=== PATIENT | male | born 1935 | race Caucasian/White ===

== ENCOUNTER → 2016-04-07 | Outpatient (CLI) | payer MEDICARE, OTHER ==
[~2016-04-07] MED LIST: ALLOPURINOL100 MG PO; AMARYL2 MG PO; CARDOXIN0.25 MG PO; CETIRIZINE HCL10 M1 PO; CIPROFLOXACIN500 MG PO; COREG3.125 MG PO; COZAAR100 MG PO; COZAAR50 MG PO; Flovent 220 M220 MCG INH; HYDRALAZINE50 MG PO; INSULIN HUMA100 U/ML; LASIX40 MG PO; LEVEMIR INSULIN SC; LEVEMIR100 U/ML SC; MELATONIN3 M1 PO; NEURONTIN300 MG PO; NOVOLOG100 U/ML SC; PRILOSEC20 M1 PO; PRILOSEC20 MG PO; PROSCAR5 MG PO; SPIRIVA -- 3018 MCG INH; TERAZOSIN5 MG PO; TOPROL XL25 MG PO; VENTOLIN H0.09 MG/AC INH; VITAMIN D31000 IU PO; WARFARIN SOD5 MG PO; ZYLOPRIM300 MG PO
--- NOTE | ~2016-04-07 | PR ---
[place], [place] PROGRESS NOTE NAME: SHEILA HERNANDEZ [facility] #: [id number] UNIT #: [id number] ROOM: DOCTOR: FRAN Davidson,SACHA BIRTHDATE: [birth year] DOS: 04/07/2016 CHIEF COMPLAINT: Followup of right lower extremity wound. HISTORY OF PRESENT ILLNESS: The location is the anterior leg with recurrent ulcerations fairly superficial that started out as blisters, that open up and were from skin tears secondary to trauma. We have had problems with recurrent blistering for the past several weeks now. He initially had refused compression stockings. He did agree to CircAid wraps; however, it did seem like it was causing recurrent blister formation due to uneven edema. He comes in today without any new complaints. He did have some superficial wounds noted last week. We discussed trying compression therapy, Unna boot specifically as he does walk and he drives, and I think for him this would be a good place to start, so he is agreeable to trying the Unna boot on today. He has no specific complaints, no drainage, no pain, no fevers or chills. He does occasionally complain of pruritus with this leg. PHYSICAL EXAMINATION: VITAL SIGNS: Temperature is 98.4, pulse is 72, respirations 18, blood pressure is 118/60. SKIN: The wounds are measuring 0.1 x 0.1 x 0.1 and the other one is also 0.1 x 0.1 x 0.1, it is almost healed. There is a very fine layer of epithelial tissue noted on it. No debridement was done. Edema is present, but appears slightly improved from prior occasions. His feet are warm. No sign of infection. 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 He is waiting to get surgery on his knee, and they will not do his surgery with any kind of open wound. I think that he would benefit from compression for now as it might help to improve his edema and hopefully keep him without a wound for a while so he can go ahead and get his surgery, so we will apply the Unna boot on today. He was told that if he had any problems with it just to take it off and he has a nursing visit in 2 days in the [facility] to follow back up for change in the Unna boot. [place], [place] PROGRESS NOTE NAME: FORESTSHEILA CARCAMO Viv UNIT #: [id number] ROOM: DOCTOR: SACHA PETERS M.D. BIRTHDATE: [birth year] SACHA PETERS MD CM:LISA [phone] SACHA PETERS M.D. 04/08/16 0151 interface
== END ==
LOC: WOUNDCARE 14:09
DX: L97.811 Non-pressure chronic ulcer of other part of right lower leg limited to breakdown of skin (principal); I87.2 Venous insufficiency (chronic) (peripheral); L29.9 Pruritus, unspecified

== ENCOUNTER → 2016-04-09 | Outpatient (CLI) | payer MEDICARE, OTHER ==
--- NOTE | ~2016-04-09 | PR ---
[place], [place] PROGRESS NOTE NAME: SHEILA HERNANDEZ [facility] #: [id number] UNIT #: [id number] ROOM: DOCTOR: FRAN Davidson,SACHA BIRTHDATE: [birth year] DOS: 04/09/2016 CHIEF COMPLAINT: Followup of right lower extremity wounds. BRIEF HISTORY OF PRESENT ILLNESS: This is a patient with venous leg ulcerations that were fairly superficial, who has had difficulty with recurrent edema and blisters that turned into wounds. We had started him a trial of Unna boot therapy this week. He was here for his nursing visit to have his boots changed and to reevaluate the wounds as this was his first trial of compression. He did okay with the boots as far as it did not cause any pain or discomfort; however, upon removal of the Unna boots, the wounds were noticeably bigger than they were and more open, so we changed him from a nursing visit to a wound care visit. PHYSICAL EXAMINATION: VITAL SIGNS: Stable. Temperature is 98.2, pulse is 74, respirations 18 and blood pressure is 122/66. EXTREMITIES: The wounds are noticeably larger, the lateral leg wound is measuring 1.1 x 0.6 x 0.1, it is clean and fairly superficial without any sign of infection. The other one is measuring bigger as well at 0.9 x 2.9 x 0.1. ASSESSMENT AND PLAN: So, these have noticeably worsened with compression, so we will not use the compression at this time. We will discontinue to Unna boot, we will have him go back to [facility] for now and have him follow up early next week. He is to change the dressing every other day. I did tell him just to go ahead and use his compression stockings if he is able to get them over his dressings, but other than that we will discontinue Unna boot for now as it does not seem to be helping. SACHA PETERS MD CM:PNTRANS [phone] SACHA PETERS M.D. 04/09/16 1252 interface
== END ==
LOC: WOUNDCARE 07:06
DX: L97.811 Non-pressure chronic ulcer of other part of right lower leg limited to breakdown of skin (principal); I87.2 Venous insufficiency (chronic) (peripheral)

== ENCOUNTER → 2016-04-16 | Outpatient (CLI) | payer MEDICARE, OTHER ==
--- NOTE | ~2016-04-16 | PR ---
[place], [place] PROGRESS NOTE NAME: SHEILA HERNANDEZ [facility]IN [facility] #: [id number] UNIT #: [id number] ROOM: DOCTOR: FRAN DavidsonSACHA BIRTHDATE: [birth year] DOS: 04/16/2016 CHIEF COMPLAINT: Followup of right leg ulcerations. HISTORY OF PRESENT ILLNESS: The location is the right lower extremity anterior as well as lateral they are recurrent chronic superficial wounds that he has had on and off for months now. He comes in with superficial wounds that healed fairly quickly. However, he has recurrent problems with blistering and edema that create new wounds. The suspected etiology of blistering is likely secondary to chronic venous insufficiency and edema. He has had some difficulty with CircAid wraps as far as trying to get the edema even when the CircAid wrap were put on hold. The patient had a trial Unna boot compression for compression. The edema improved quite a bit; however, he had increased size of his wound starting with Unna boot compression that was discontinued, so he comes in today with the original wounds that we have been dealing with that are noticeably smaller; however, has a new area on the lateral side, which he said started out again as a blister opened up, but somewhat sore and tender at this time. No other specific complaints regarding the wounds are noted. OBJECTIVE: VITAL SIGNS: Stable. Blood pressure is 120/60, pulse is 68, respirations 18, and temperature is 98.4. The small lateral wound on the right lower extremity is almost healed with 0.1 x 0.1 x 0.1 and it looks fairly healed. The distal wound is now measuring 0.5 x 1.8 x 0.1, but has an islands of epithelial and tissue in size and is essentially too smaller wound. There is no necrotic tissue visible, it is superficial and clean. The new area is located on the lateral side and is 1.5 x 2.1 x 0.1. Once again superficial and clean with no visible necrotic tissue present. ASSESSMENT AND PLAN: Recurrent ulcerations of the right lower extremity secondary to venous insufficiency and edema. He has had venous intervention done, but continues to have problems with edema and areas of blistering that creates ulcers that heel fairly quickly. He has had some issues with sensitivity to products he is appeared to be sensitive to Bactroban as well as adhesives causing trauma to the skin. We will continue with the collagen dressing. I would use silver for now for antibacterial purposes. Followup is in one week. He does have compression pumps ordered and hopefully those will drive and I would like to see if he responds to this as part of his regimen. He does have compression stockings at home, which he is going to continue to wear. ADDENDUM Addendum to the note done on 04/16/2016. The patient was also noted to have lymphedema with lymphorrhea from uncontrolled edema and recurrent blister formation. The lymphedema is chronic and severe. The patient has tried elevation, exercise and has been regularly applying compression wraps over several weeks now. He has been compliant treatments. The lymphedema is unresponsive and there has been no significant improvement over the past 4 weeks despite standard wound care and compression therapy or we [place], [place] PROGRESS NOTE NAME: SHEILA HERNANDEZ Viv UNIT #: [id number] ROOM: DOCTOR: SACHA PETERS M.D. BIRTHDATE: [birth year] are ordering compression pumps from [employer]. SACHA PETERS MD CM:LISA [phone] SACHA PETERS M.D. 05/21/16 0612 interface
== END ==
LOC: WOUNDCARE 01:33
DX: L97.811 Non-pressure chronic ulcer of other part of right lower leg limited to breakdown of skin (principal); I87.2 Venous insufficiency (chronic) (peripheral)

== ENCOUNTER → 2016-04-23 | Outpatient (CLI) | payer MEDICARE, OTHER ==
--- NOTE | ~2016-04-23 | PR ---
[place], [place] PROGRESS NOTE NAME: SHEILA HERNANDEZ [facility] #: [id number] UNIT #: [id number] ROOM: DOCTOR: FRAN DavidsonSACHA BIRTHDATE: [birth year] DOS: 04/23/2016 WOUND CARE PROGRESS NOTE CHIEF COMPLAINT: Followup of right leg ulcerations. HISTORY OF PRESENT ILLNESS: This is an elderly male with a history of recurrent venous leg ulcers that are fairly superficial, that he has had off and on for months now that started out as blistering with edema that creates superficial wounds. We have had problems with his compression wraps. He has CircAid wraps, but they do not seem to really improve things and make the edema very uneven creating new areas of blistering as well. He has also tried Unna boot compression which did not help either, it actually made the wounds appear bigger for some, which may be an issue with the material, perhaps there was an allergy to it. He is currently just using a collagen dressing with his regular compression stockings. He is awaiting lymphedema pumps. Overall, he is not complaining of any significant pain. There is still some drainage with one of the wounds, most of the other wounds have healed fairly well. In general, his edema seems better. PHYSICAL EXAMINATION: VITAL SIGNS: He is afebrile, pulse is 64, respirations 18, blood pressure is 108/54. EXTREMITIES: The right lower leg, one of the wounds is essentially almost healed. It has a small scab on it. It is 0.1 x 0.1 x 0.1. It looks good. There is no sign of infection. The other distal lower leg wound has healed. This is wound #7, wound #8 is much smaller as well at 0.7 x 1.2 x 0.1. It definitely looks good. There is no necrotic tissue visible. No debridement was done today. ASSESSMENT AND PLAN: Chronic and recurrent superficial ulcerations secondary to uncontrolled edema. They are responding well to the current dressing, which we will continue for now and have him follow up in 1 week. I hope by then, he will be healed and he is awaiting lymphedema pumps to see if this will help prevent reoccurrence. He has not heard anything from the vendor as of yet. Followup is in 1 week. [place], [place] PROGRESS NOTE NAME: SHEILA HERNANDEZ UNIT #: [id number] ROOM: DOCTOR: SACHA PETERS M.D. BIRTHDATE: [birth year] SACHA PETERS MD CM:LISA [phone] SACHA PETERS M.D. 04/24/16 0116 interface
== END | disposition home or self-care (01) ==
LOC: WOUNDCARE 03:00 → LAB 03:00 → WOUNDCARE 10:15
PROVIDERS: Family Medicine
DX: Z51.81 Encounter for therapeutic drug level monitoring (principal); Z00.00 Encounter for general adult medical examination without abnormal findings; E11.9 Type 2 diabetes mellitus without complications; M10.9 Gout, unspecified

== ENCOUNTER → 2016-04-30 | Outpatient (CLI) | payer MEDICARE, OTHER ==
--- NOTE | ~2016-04-30 | PR ---
[place], [place] PROGRESS NOTE NAME: SHEILA HERNANDEZ [facility] #: [id number] UNIT #: [id number] ROOM: DOCTOR: FRAN Davidson,SACHA BIRTHDATE: [birth year] DOS: 04/30/2016 CHIEF COMPLAINT: Followup of right leg ulcer. HISTORY OF PRESENT ILLNESS: The location is the right lower leg laterally. He has recurrent chronic superficial wounds secondary to venous insufficiency, lymphedema, and diabetes. He comes in today without any new complaints. The wound is coming along nicely. It is not draining any more. There is no discomfort. He is wearing his compression stockings. PHYSICAL EXAMINATION: VITAL SIGNS: Stable. Temperature is 98.3, pulse is 60, respirations 18, blood pressure is 110/50. EXTREMITIES: The wound is measuring 0.4 x 0.5 x 0.1; however, there is epithelialization over it and it is not draining at this point. ASSESSMENT AND PLAN: Healed wound. No new ulcerations at this time. The patient continues to have recurrent blistering secondary to venous insufficiency and recurrent edema. He does have compression stockings; however, he is due for a new pair. I would like to see if he would like to try the 2-layer compression system. I think this would probably be easier for him to get his stockings on and wear them on a daily basis. So, we have written for compression stockings to be ordered for him. In addition, he is waiting lymphedema pump to be starting soon. Hopefully, this will help as well. The patient will be discharged and was instructed to come back to the wound clinic if he has any future problems. In the meantime, we will ask him to keep the area covered for at least a week just to protect it from recurrent injury. SACHA PETERS MD CM:LISA [phone] SACHA PETERS M.D. 04/30/16 2218 interface
== END | disposition home or self-care (01) ==
LOC: WOUNDCARE 03:08 → LAB 03:08 → WOUNDCARE 09:55
DX: Z12.5 Encounter for screening for malignant neoplasm of prostate (principal); D40.0 Neoplasm of uncertain behavior of prostate; E87.2 Acidosis; L97.911 Non-pressure chronic ulcer of unspecified part of right lower leg limited to breakdown of skin; I87.2 Venous insufficiency (chronic) (peripheral); R60.9 Edema, unspecified

== ENCOUNTER → 2016-06-17 | Outpatient (CLI) | payer MEDICARE, OTHER ==
--- NOTE | ~2016-06-17 | PR ---
[place], [place] PROGRESS NOTE NAME: SHEILA HERNANDEZ [facility] #: [id number] UNIT #: [id number] ROOM: DOCTOR: FRAN DavidsonSACHA BIRTHDATE: [birth year] DOS: 06/17/2016 SUBJECTIVE: The patient comes in for followup of wound care visit. He has a history of recurrent venous ulcers, venous insufficiency, chronic leg edema and lymphedema that we have been trying to get lymphedema pumps for him. We have ordered them; however, they only brought him 1 pump instead of 2. So, he is using it on his right leg and his left leg, but mostly on the right leg at this time and he says he really seems like it really helps his swelling and he seems to like it a lot. He does tend to get blistering frequently that open up, but quickly heal and that cause ulcerations. He does have a new ulcer of the right posterior calf, which is fairly superficial. He said he just got it recently. PHYSICAL EXAMINATION: VITAL SIGNS: Examination today shows vitals that are stable. Blood pressure is 118/68, pulse is 68, respirations 16 and temperature 98.2. MUSCULOSKELETAL: The wound on the left lower leg appears healed. He does, however, have a new one on the right lower leg, which is measuring 1.1 x 0.8 x 0.1. It superficial, it is clean. There is no necrotic tissue present. The edema; however, is much improved overall. No debridement was done today. ASSESSMENT AND PLAN: Chronic venous stasis, venous insufficiency and lymphedema. The lymphedema pumps do seem to really be helping with his edema. I hope they will be able to prevent any ulcerations as well. We will continue with the pumps. I placed a call out to the company that provided the pump for him and asked if they could get 2 as he has edema of his left lower leg as well as his right. So, they said they are aware and they are ordering it and it should be at his house shortly. He was told that he should not be using his compression bandages or compression stockings while he is using his lymphedema pumps. I did explain to him that he should be using his compression stockings with his lymphedema pumps. After he is done with his treatment, he should be placing his stockings on. We will continue with Adaptic and collagen for his wound of his right lower extremity. SACHA PETERS MD CM:LISA [phone] SACHA PETERS M.D. 06/17/162020 interface
== END ==
LOC: WOUNDCARE 03:13
DX: E11.622 Type 2 diabetes mellitus with other skin ulcer (principal); I87.2 Venous insufficiency (chronic) (peripheral); L97.911 Non-pressure chronic ulcer of unspecified part of right lower leg limited to breakdown of skin; I89.0 Lymphedema, not elsewhere classified

== ENCOUNTER → 2016-06-25 | Outpatient (CLI) | payer MEDICARE, OTHER ==
--- NOTE | ~2016-06-25 | PR ---
[place], [place] PROGRESS NOTE NAME: SHEILA HERNANDEZ [facility] #: [id number] UNIT #: [id number] ROOM: DOCTOR: FRAN DavidsonSACHA BIRTHDATE: [birth year] DOS: 06/25/2016 CHIEF COMPLAINT: Recurrent ulcers of the legs. HISTORY OF PRESENT ILLNESS: This patient has a history of recurrent venous ulcerations, venous insufficiency, chronic leg edema and lymphedema. He tends to get frequent blisters that open up and cause ulcerations very frequently and recurrently. He had an ulcer last week on his right lower leg, which was relatively superficial. That wound has healed since then; however, he has a new wound on his left lower leg, which is in the mid calf area. He said it started out as a very small blister and then opened up and now he has a wound there. He has new lymphedema pumps, which he has had for. He has only used the left leg pump for a couple of days now. He initially had a pump for the right lower leg, but now got a new pump for the left lower leg and he is using them. He says he seems to like it. His edema has much improved overall. He is able to walk better in general. He had so much edema before a few weeks ago where he was admitted to the hospital as he could not even ambulate well. He has no specific complaints. No fevers or chills. No nausea or vomiting. The wound is located on the left lower leg at this time and is uncomfortable. OBJECTIVE: VITAL SIGNS ARE FOLLOWS: Temp is 98.1, pulse is 64, respirations 16, blood pressure is 120/60. WOUND EXAMINATION: So the wound is measuring 1.2 x 3.1 x 0.1 that is on the left calf. The other looks clean. There is no necrotic tissue. There is no surrounding cellulitis. The edema is still pretty prominent in the left lower leg, There is chronic venous stasis changes. No debridement was done. ASSESSMENT AND PLAN: Recurrent venous ulcerations secondary to venous insufficiency and lymphedema. He is also diabetic and has a history of renal insufficiency. We will use Adaptic and a collagen as before, this seems to work fairly well with them. He has his own compression stockings, which are fairly new. We will continue to use these for now. We may want to consider doing another wrap on him if he continues to have problems with this. The compression stockings are relatively new and the lymphedema pumps are relatively new for him. The other issue is his MISSY was 1.3. He is agreeable to getting further arterial testing done, so we will send him for arterial Dopplers to be ordered. Followup in 1 week. [place], [place] PROGRESS NOTE NAME: SHEILA HERNANDEZ UNIT #: [id number] ROOM: DOCTOR: SACHA PETERS M.D. BIRTHDATE: [birth year] SACHA PETERS MD CM:LISA [phone] SACHA PETERS M.D. 06/25/16 1255 interface
== END ==
LOC: WOUNDCARE 03:20
DX: I87.311 Chronic venous hypertension (idiopathic) with ulcer of right lower extremity (principal); E11.622 Type 2 diabetes mellitus with other skin ulcer; L97.811 Non-pressure chronic ulcer of other part of right lower leg limited to breakdown of skin; I89.0 Lymphedema, not elsewhere classified

== ENCOUNTER → 2016-07-02 | Outpatient (CLI) | payer MEDICARE, OTHER ==
[~2016-07-02] MED LIST changes: +CIPRO250 MG PO; +OXYGEN NAS
--- NOTE | ~2016-07-02 | PR ---
[place], [place] PROGRESS NOTE NAME: SHEILA HERNANDEZ [facility] #: [id number] UNIT #: [id number] ROOM: DOCTOR: FRAN DavidsonSACHA BIRTHDATE: [birth year] DOS: 07/02/2016 CHIEF COMPLAINT: Recurrent ulcers of the legs. HISTORY OF PRESENT ILLNESS: The patient has a history of recurrent venous ulcerations, venous insufficiency, chronic leg edema and lymphedema. He gets frequent blistering that open up and cause superficial ulcerations. This is recurrent problem. The wounds do heal fairly quickly. He has lymphedema pumps and has been using it a little bit more on his right leg than the left leg so far and it really seems to have helped with the right leg. However, he is continuing to get new blisters on his left leg. Last week, he had a new one on his left leg and also a new one popped up this week as well. It is somewhat painful and uncomfortable edema. He says he cannot wear his compression stockings because the wound is too sore. It is not really draining a whole lot. No fevers or chills are noted. OBJECTIVE: VITAL SIGNS: Stable. Temperature 98.2, pulse 68, respirations 16, blood pressure is 118/60. SKIN: The wound from last week is measuring smaller at 1 x 2 x 0.1. It is clean, it is superficial the wound. The new wound is measuring 2.4 x 3.7 x 0.1. It is relatively superficial still. No sign of cellulitis. ASSESSMENT AND PLAN: He did have arterial Dopplers done at [facility], which showed no hemodynamically significant stenosis. I did discuss with him that I think we should try the compression wrap again while since he continues to get recurrent blistering and he is agreeable to trying it again. We have tried a Unna boot before, which did not seem to work very well for him, so we will try the three layer light compression wrap and he is to come back early next week for a wrap change and then a followup wound care visit with me in a week. I did explain to him that on the differential diagnosis, it is a possible autoimmune blistering conditions such as bullous pemphigoid, however, I still feel that this is more related to his uncontrolled edema rather than a dermatological condition. So, we will go ahead and use the same collagen dressing and have him follow up in one week. We will start the compression today and have him come back early next week for a wrap change. ADDENDUM The wrap that was applied was a 3-layer multi light layer wrap, it was applied in the usual fashion by nursing staff. [place], [place] PROGRESS NOTE NAME: SHEILA HERNANDEZ UNIT #: [id number] ROOM: DOCTOR: SACHA PETERS M.D. BIRTHDATE: [birth year] SACHA PETERS MD CM:LISA [phone] SACHA PETERS M.D. 07/13/16 0939 interface
== END ==
LOC: WOUNDCARE 00:52
DX: E11.622 Type 2 diabetes mellitus with other skin ulcer (principal); L97.911 Non-pressure chronic ulcer of unspecified part of right lower leg limited to breakdown of skin; I87.2 Venous insufficiency (chronic) (peripheral); I89.0 Lymphedema, not elsewhere classified

== ENCOUNTER → 2016-07-06 | Outpatient (CLI) | payer MEDICARE, OTHER ==
[~2016-07-06] MED LIST changes: -CIPRO250 MG PO; -OXYGEN NAS
--- NOTE | ~2016-07-06 | PR ---
[place], [place] PROGRESS NOTE NAME: SHEILA HERNANDEZ [facility] #: [id number] UNIT #: [id number] ROOM: DOCTOR: FRAN Davidson,SACHA BIRTHDATE: [birth year] DOS: 07/06/2016 CHIEF COMPLAINT: Left leg ulceration. HISTORY OF PRESENT ILLNESS: This patient was supposed to have a nursing visit today for compression wrap change; however, it was changed to a wound care visit as he did not do well with the wraps. It did seem that it slipped a bit. He has a wound and measuring bigger and is bleeding pretty easily, which was not the case before the wrap. Edema is very uneven. In general, he does not have any pain. He says he thought maybe it had slipped a bit, but he did not do well with the wraps. He has no significant other complaints at the present time. OBJECTIVE: VITAL SIGNS: Stable. Blood pressure is 126/54, pulse of 76, respirations 18, temperature is 98. WOUND EXAM: The wound is measuring bigger at 3 x 3.1 x 0.1. There is also the other wound, which is measuring a little bit smaller at 0.7 x 1.8 x 0.1. It is clean. The area was cleansed with a sterile Q-tip and some saline. There is no evidence of cellulitis or infection. No debridement was done. ASSESSMENT AND PLAN: Recurrent venous ulcerations secondary to venous insufficiency and lymphedema. He also has some renal insufficiency and diabetes. We will go back with Adaptic and collagen as before. He did not do well with compression wraps. The edema becomes very uneven for some reason. He does pretty well with the lymphedema pumps, so we will just have him use a 2-layer Tubigrip for now. Once the ulcer is improving, he may go back to the pumps. I do not want him to use a pump right away. I would like him to wait a couple of days first and then he may use his own compression stockings if he can get it on. FOLLOWUP: Wound care followup in 1 week. SACHA PETERS MD CM:PNTRANS [phone] SACHA PETERS M.D. 07/06/16 0954 interface
== END ==
LOC: WOUNDCARE 03:15
DX: E11.622 Type 2 diabetes mellitus with other skin ulcer (principal); I87.2 Venous insufficiency (chronic) (peripheral); L97.811 Non-pressure chronic ulcer of other part of right lower leg limited to breakdown of skin; I89.0 Lymphedema, not elsewhere classified

== ENCOUNTER → 2016-07-09 | Outpatient (CLI) | payer MEDICARE, OTHER ==
[~2016-07-09] MED LIST changes: +CIPRO250 MG PO; +OXYGEN NAS
== END ==
LOC: WOUNDCARE 02:42
DX: Z53.21 Procedure and treatment not carried out due to patient leaving prior to being seen by health care provider (principal)

== ENCOUNTER 2016-07-14 19:35 | Emergency (ER) | payer MEDICARE, OTHER ==
[~2016-07-14] VITALS: Ht 195.5 cm; Wt 124.7 kg
[~2016-07-14 19:35] MED LIST changes: -CIPRO250 MG PO; -OXYGEN NAS
[2016-07-14 19:49] VITALS: BP 141/68
[2016-07-14] MEDS ORDERED: OXYGEN NAS (19:51)
[2016-07-14 20:19] LABS: BASO % 0.6 % (0.0-1.0); EOS # 0.3 10*3/uL (0.0-0.4); EOS % 5.6 % (1.0-4.0); HEMATOCRIT 28.9 % (42.0-52.0); HEMOGLOBIN 8.7 g/dl (14.0-18.0); LYMPH # 0.7 10*3/uL (1.3-4.4); LYMPH % 13.3 % (27.0-41.0); MEAN CELL VOLUME 90.9 fl (80.0-94.0); MEAN CORPUSCULAR HGB 27.4 pg (27.0-31.0); MEAN CORPUSCULAR HGB CONC 30.1 g/dl (33.0-37.0); MEAN PLATELET VOLUME 10.4 fl (9.6-12.3); MONO # 0.5 10*3/uL (0.1-1.0); MONO % 10.1 % (3.0-9.0); NEUT # 3.8 10*3/uL (2.3-7.9); PLATELET COUNT AUTOMATED 136 10*3/uL (130-400); RED BLOOD COUNT 3.18 10*6/uL (4.50-5.90); RED CELL DISTRI WIDTH 14.9 % (0-14.5); WHITE BLOOD COUNT 5.4 10*3/uL (4.8-10.8)
[2016-07-14] MEDS ORDERED: CIPRO250 MG PO (20:22)
== END 2016-07-14 20:45 | disposition home or self-care (01) ==
LOC: ED 19:35
PROVIDERS: Student in an Organized Health Care Education/Training Program
DX: H92.21 Otorrhagia, right ear (principal); Z88.2 Allergy status to sulfonamides; Z79.4 Long term (current) use of insulin; Z79.01 Long term (current) use of anticoagulants

== ENCOUNTER → 2016-07-24 | Outpatient (CLI) | payer MEDICARE, OTHER ==
[~2016-07-24] MED LIST changes: +CIPRO250 MG PO; +OXYGEN NAS
--- NOTE | ~2016-07-24 | PR ---
[place], [place] PROGRESS NOTE NAME: SHEILA HERNANDEZ [facility] #: [id number] UNIT #: [id number] ROOM: DOCTOR: FRAN DavidsonSACHA BIRTHDATE: [birth year] DOS: 07/24/2016 CHIEF COMPLAINT: Right leg ulcerations. HISTORY OF PRESENT ILLNESS: The patient had been coming off and on for several months now for recurrent venous ulcerations and the lymphedema. The ulceration started out as blisters secondary to severe edema. They open up relatively quickly and then do heal relatively quickly as well. He has lymphedema pumps and wears compression stockings fairly regularly, but still has trouble with edema. He comes in today stating that the wounds that he had on the left leg the last time he was here have healed; however, he has new wounds on the right leg, which just started about 3 days ago. He still is using his lymphedema pumps. They have only been open for a few days now. There are no fevers or chills or purulent drainage. They are somewhat uncomfortable if open to air, but otherwise do not really cause him any pain. PHYSICAL EXAMINATION: VITAL SIGNS: As follows: He is afebrile, pulse is 88, respirations 18, blood pressure is 138/70. WOUND EXAM: He has new wound number 13 and number 14. They are located on the right leg at this time. One is measuring 1 x 2 x 0.1 and looks relatively clean and superficial. The distal wound is fairly small and is already starting to heal on its own. It is measuring 0.4 x 0.3 x 0.1. No debridement was done. ASSESSMENT AND PLAN: Recurrent ulcerations secondary to lymphedema, venous insufficiency. He has had venous ablation done. He wears compression stockings. He has lymphedema pumps, but despite this continues to have problems with edema and recurrent blistering causing wounds. I would like to use a Puracol and Adaptic as before. He does seem to respond. He responds well to those and have him see a lymphedema therapist to see if this would help him prevent future reoccurrences. Follow up in Wound Clinic in one week. SACHA PETERS MD CM:LISA Nam: 07/24/16 0848 1035 SACHA PETERS M.D. 07/24/16 1036 interface
== END ==
LOC: WOUNDCARE 01:26
DX: E11.622 Type 2 diabetes mellitus with other skin ulcer (principal); I87.2 Venous insufficiency (chronic) (peripheral); L97.811 Non-pressure chronic ulcer of other part of right lower leg limited to breakdown of skin; I48.91 Unspecified atrial fibrillation; I89.0 Lymphedema, not elsewhere classified

== ENCOUNTER → 2016-07-31 | Outpatient (CLI) | payer MEDICARE, OTHER ==
--- NOTE | ~2016-07-31 | PR ---
[place], [place] PROGRESS NOTE NAME: SHEILA HERNANDEZ [facility] #: [id number] UNIT #: [id number] ROOM: DOCTOR: FRAN Davidson,SACHA BIRTHDATE: [birth year] DOS: 07/31/2016 CHIEF COMPLAINT: Right leg ulceration. HISTORY OF PRESENT ILLNESS: The location of the wound is on the right anterior tibia secondary to recurrent venous ulcerations and lymphedema. They start out as blisters that heel fairly quickly. He is using lymphedema pumps and compression stockings on a regular basis, but continues to have problems with recurrent edema off and on. He has no new wounds of his right lower extremity. At this point, he has 1 area that is open still and 1 that has scabbed over. He has no specific complaints. PHYSICAL EXAMINATION: VITAL SIGNS: Are as follows, temp 98.2, pulse is 80, respirations 18, blood pressure is 138/74. WOUND EXAMINATION: The wound is measuring smaller 0.6 x 1.2 x 0.1. The other one is scabbed over at this time, which is 0.1 x 0.1 x 0.1. We debrided the proximal wound as there was some minimal fibrin slough present. This is a selective debridement only. Tissue removed was fibrin and slough. There was minimal bleeding. A curette was utilized. The patient tolerated the debridement well. The other area where the scab was removed and underneath it, the area was healed. ASSESSMENT AND PLAN: Recurrent venous ulcerations. He is down to 1 wound at this time and it seems to be healing nicely. We will continue with collagen and he is using his own compression stockings and lymphedema pumps. He is going to follow back up with us in 1 week. SACHA PETERS MD CM:PNTRANS [id number] SACHA PETERS M.D. 08/01/16 0017 interface
== END ==
LOC: WOUNDCARE 02:57
DX: E11.622 Type 2 diabetes mellitus with other skin ulcer (principal); I87.2 Venous insufficiency (chronic) (peripheral); L97.811 Non-pressure chronic ulcer of other part of right lower leg limited to breakdown of skin; I89.0 Lymphedema, not elsewhere classified

== ENCOUNTER → 2016-08-06 | Outpatient (CLI) | payer MEDICARE, OTHER ==
--- NOTE | ~2016-08-06 | PR ---
[place], [place] PROGRESS NOTE NAME: SHEILA HERNANDEZ [facility] #: [id number] UNIT #: [id number] ROOM: DOCTOR: SACHA PETERS M.D. BIRTHDATE: [birth year] DOS: 08/07/2016 WOUND CARE FOLLOWUP CHIEF COMPLAINT: Open ulcer of right lower extremity. HISTORY OF PRESENT ILLNESS: The location is the anterior right leg tibial area. Venous ulcer and lymphedema are associated with it. He has been coming to the Wound Clinic for 8 weeks now with recurrent ulcerations of the legs that healed fairly quickly. He uses his own compression stockings and lymphedema pumps that have definitely helped with the swelling. He has one wound now on the anterior leg. He does complain of some itchiness around the wound, but overall is stable. No fevers or chills. No pain with the wound, some minimal drainage. OBJECTIVE: VITAL SIGNS: Stable. Temperature is 98, pulse of 80, respirations 18, blood pressure is 118/70. SKIN: The wound is measuring 0.9 x 1.1 x 0.1. It has some fibrin slough present. The surrounding area looks good. It is not cellulitic and there is evidence of epithelialization around the periwound area. Distal area was debrided again this week with a curette. The tissue removed was just nonviable fibrin and slough. There was a moderate amount of bleeding that was controlled with pressure. Cetacaine spray was used for topical anesthesia. Timeout was conducted prior to the start of the procedure. The patient tolerated the procedure well. Post-debridement measurements are unchanged. The other wound is healed, that was on his right lower leg distally. ASSESSMENT AND PLAN: Recurrent venous ulcerations, which seems to be healing fairly well. This one in particular has been a little bit slow to heal. I would like to add AG to the dressing for bioburden control; although it does not appear to have any acute infection and would like to continue with collagen and have a followup in one week. SACHA PETERS MD CM:PNKIM [id number] SACHA PETERS M.D. 08/07/16 0013 interface
== END ==
LOC: WOUNDCARE 02:13
DX: E11.622 Type 2 diabetes mellitus with other skin ulcer (principal); L97.811 Non-pressure chronic ulcer of other part of right lower leg limited to breakdown of skin; I87.2 Venous insufficiency (chronic) (peripheral); I89.0 Lymphedema, not elsewhere classified

== ENCOUNTER → 2016-08-13 | Outpatient (CLI) | payer MEDICARE, OTHER ==
--- NOTE | ~2016-08-13 | PR ---
[place], [place] PROGRESS NOTE NAME: SHEILA HERNANDEZ [facility] #: [id number] UNIT #: [id number] ROOM: DOCTOR: FRAN DavidsonSACHA BIRTHDATE: [birth year] DOS: 08/13/2016 CHIEF COMPLAINT: Open ulcer of the right lower extremity. HISTORY OF PRESENT ILLNESS: The location is the anterior leg tibial area. It is a venous ulcer with lymphedema associated with it. He has been coming to the wound clinic now for 9 weeks for recurrent ulcerations that start out as blisters and healed fairly quickly with the wound care. He uses his own compression stockings and he is now down to one ulcer that is definitely getting smaller and healing quite nicely. He has no specific complaints regarding the wound. No fevers or chills. No pain around it. There is a little bit of itching around the wound, but overall it is getting much smaller and improved. He has plans to see a sports medicine doctor due to complaints of intermittent numbness in his right lower extremity that he has had off and on for some time now. OBJECTIVE: VITAL SIGNS: Stable. Temperature is 97.9, pulse is 60, respirations 18, blood pressure is 110/48. WOUND EXAMINATION: The wound is measuring 0.5 x 0.8 x 0.1. It is clean. It is definitely epithelializing and there is no necrotic tissue. There is no debridement done today. ASSESSMENT AND PLAN: Recurrent venous ulcerations, which seems to be healing fairly well. This one seems to have definitely responded to the silver so we will go ahead and continue with that and have him followup in one week. SACHA PETERS MD CM:PNTRANS [id number] SACHA PETERS M.D. 08/14/16 0100 interface
== END ==
LOC: WOUNDCARE 02:00
DX: I87.2 Venous insufficiency (chronic) (peripheral) (principal); L97.811 Non-pressure chronic ulcer of other part of right lower leg limited to breakdown of skin; I89.0 Lymphedema, not elsewhere classified

== ENCOUNTER → 2016-08-20 | Outpatient (CLI) | payer MEDICARE, OTHER ==
--- NOTE | ~2016-08-20 | PR ---
[place], [place] PROGRESS NOTE NAME: SHEILA HERNANDEZ [facility] #: [id number] UNIT #: [id number] ROOM: DOCTOR: SACHA PETERS M.D. BIRTHDATE: [birth year] DOS: 08/20/2016 SUBJECTIVE: The patient comes in for followup wound care visit. This is a routine followup. CHIEF COMPLAINT: Open ulcer of the right lower extremity. HISTORY OF PRESENT ILLNESS: The location is the anterior tibial leg. It is a venous leg ulcer that he has had open for 3 weeks now and he has been coming to the Wound Clinic for 10 weeks now for recurrent ulcerations and that heeled fairly quickly, but gets new ones quite frequently. He is using lymphedema pumps and compression stockings on a daily basis. He has no specific complaints with the wound. He said it is seeping just a little bit, but overall there is no pain or discomfort. No fevers or chills. PHYSICAL EXAMINATION: VITAL SIGNS: He is afebrile, pulse of 58, respirations 18, blood pressure is 110/60. The wound is measuring smaller at 0.3 x 0.3 x 0.1. There is some minimal fibrin slough present in the base of the wound. Selective debridement was done today. The tissue removed was fibrin slough. The instrument used was a curette 100% of the area was debrided. There was no bleeding. The patient tolerated the debridement well. Cetacaine spray was used for topical anesthesia. Post-debridement measurements are unchanged. ASSESSMENT AND PLAN: Chronic venous ulceration which is gradually healing with the wound care. He is on a collagen dressing and he is on compression stockings for compression. We have tried using our multiple layer wrap as well as Unna boot on him, which he did not respond well to these that is why he is using his own stockings and he seems to be doing better with that. SACHA PETERS MD CM:PNTRANS [id number] SACHA PETERS M.D. 08/21/16 0946 interface
[2016-08-20 07:15] LABS: HEMATOCRIT 30.4 % (42.0-52.0); HEMOGLOBIN 8.9 g/dl (14.0-18.0)
[2016-08-20 07:50] LABS: MAGNESIUM 2.7 mg/dL (1.5-2.1); POTASSIUM 4.5 mmol/L (3.5-5.1)
[2016-08-20 08:02] LABS: INTERNATIONAL NORM RATIO 1.8 (2.0-3.5); PROTHROMBIN TIME 19.6 SECONDS (9.0-12.4)
== END | disposition home or self-care (01) ==
LOC: LAB 00:10 → WOUNDCARE 00:10
PROVIDERS: Internal Medicine Nephrology
DX: Z51.81 Encounter for therapeutic drug level monitoring (principal); S81.802D Unspecified open wound, left lower leg, subsequent encounter; N18.3 Chronic kidney disease, stage 3 (moderate); E11.9 Type 2 diabetes mellitus without complications; M10.9 Gout, unspecified; X58.XXXD Exposure to other specified factors, subsequent encounter

== ENCOUNTER → 2016-09-07 | Outpatient (CLI) | payer MEDICARE, OTHER ==
[2016-09-07 10:25] LABS: HEMATOCRIT 33.5 % (42.0-52.0)
[2016-09-07 11:04] LABS: MAGNESIUM 2.5 mg/dL (1.5-2.1); POTASSIUM 4.8 mmol/L (3.5-5.1)
== END | disposition home or self-care (01) ==
LOC: LAB 10:09
PROVIDERS: Internal Medicine Nephrology
DX: N18.3 Chronic kidney disease, stage 3 (moderate) (principal)

== ENCOUNTER → 2016-12-10 | Outpatient (CLI) | payer MEDICARE, OTHER ==
--- NOTE | ~2016-12-10 | PR ---
[place], [place] PROGRESS NOTE NAME: SHEILA HERNANDEZ [facility] #: [id number] UNIT #: [id number] ROOM: DOCTOR: FRAN DavidsonSACHA BIRTHDATE: [birth year] DOS: 12/10/2016 CHIEF COMPLAINT: Chronic wound of the right lower extremity. HISTORY OF PRESENT ILLNESS: This is an 81-year-old male known to the Wound Clinic for previous wounds. He was discharged back in August for a history of recurrent chronic venous ulcerations of his bilateral lower extremities associated with lymphedema. He has a history of chronic renal failure and diabetes and recurrent blistering wounds due to severe edema. The patient was healed back in August and presents today for recurrence of these types of wounds. Apparently, he was recently in the hospital at [place]. He was admitted there for a GI bleed. He is on chronic Coumadin therapy for atrial fibrillation and had multiple transfusions due to this. He states shortly after that admission, his legs started to swell up again and these wounds started as blisters and then opened up and he has a few wounds that are open on the right leg. He has a very large one on the posterior distal right leg above the Achilles area that is quite tender. In the meantime, he has also lymphedema pumps, but has not been able to use them because of the open wounds and also has not really been able to get his JENA hose on because of the wounds nor his compression stockings. He has compression stockings that he uses on a fairly regular basis. So, the wounds have been open for approximately a week now and they are draining large amounts of fluid. He has no fevers or chills noted. PAST MEDICAL HISTORY: Significant for the following: Hypertension; diabetes type 2 which he has had it for 10 years, sugars are fairly well controlled; recent blood transfusion, chronic anticoagulant therapy due to atrial fibrillation; chronic renal failure; recent GI bleed. He is status post lithotripsy. 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 FAMILY HISTORY: Significant for heart disease and hypertension. SOCIAL HISTORY: He is a former smoker and is , does not use drugs or alcohol. REVIEW OF SYSTEMS: He does get easily short of breath. He is on oxygen p.r.n. and at night. This was recently started. He denies any fevers or chills, nausea or vomiting. His appetite is good. ALLERGIES: BAND-AIDS, PLASTIC TAPE AND SULFA. CURRENT MEDICATIONS: Listed as the following: Allopurinol 100 daily; metoprolol 25 daily; terazosin 5 mg daily; Levemir 16 units subq at bedtime; gabapentin 300 mg 2 capsules 3 times a day; oxygen p.r.n.; NovoLog sliding scale; trazodone 50 mg at bedtime; potassium chloride 20 mEq daily; Tylenol 500 two tablets as needed every 6 hours; oxycodone 5 mg tablets, 1 tablet every 6 hours; hydralazine 50 mg half a tablet twice a day. He was on Lasix and he is still on it, apparently 2 in the morning and 1 in the evening; and losartan 50 mg daily. [place], [place] PROGRESS NOTE NAME: SHEILA HERNANDEZ UNIT #: [id number] ROOM: DOCTOR: SACHA PETERS M.D. BIRTHDATE: [birth year] PHYSICAL EXAMINATION: This is an elderly male who appears as his stated age, is in no acute distress, pleasant and cooperative. HEENT: Normocephalic, atraumatic. Sclerae are anicteric. There is no JVD. LUNGS: Clear. CARDIOVASCULAR: S1, S2 irregularly irregular. ABDOMEN: Obese, soft and nontender. EXTREMITIES: He has 2-3+ pitting edema bilaterally. His feet are warm. He has chronic venous stasis changes. An MISSY done on the left was 1.32 and on the right was 1.33. He has got good capillary refill. It is difficult to feel a pulse due to his severe edema. His wounds are located on his right leg. The right lateral anterior has several scattered wounds that are measuring 1.3 cm x 1 cm x 0.1 cm. They are draining serosanguineous fluid. They look clean. There is no sign of infection. They are fairly superficial. On the right posterior leg, above the Achilles area, there is a larger wound that is quite open and is measuring 7.4 cm x 3.7 cm x 0.1 cm and it looks clean and really no signs of infection. LABORATORY DATA: The patient just had lab work done a few days ago. His sodium is 142, potassium is 4.3, BUN is 41 and his creatinine is 2.28. GFR is estimated at 28 and magnesium was 2.4. His hemoglobin back in November was 8.8. Last hemoglobin A1c was 5.4. No debridement was done today. ASSESSMENT AND PLAN: Chronic venous stasis and lymphedema. Currently, the wounds look clean. There are open. The largest one is on the back of the right leg. We will use Adaptic and Maxorb for absorption and have him change it every other day and p.r.n. for edema control. He has compression stockings at home. He is really unable to get them on at this time. He said he is able to get the one on the left leg on so he is currently using that for his edema control. He has lymphedema pumps. We are going to have him use his lymphedema pump for his left leg. He does have few blistered areas, but there are intact and they are very small and they are not actually open. So, I would recommend for him to try to use lymphedema pump on his left leg for now. For the right leg, we are going to use Tubigrip, a 2-layer which he can remove at night. He has had compression in the past and has not done very well with Unna boot or even a 3-layer wrap. So, I would like to hold off on this for now. He has had some venous intervention in the past, I believe, at [facility]. Follow up in Wound Clinic in one week. [place], [place] PROGRESS NOTE NAME: SHEILA HERNANDEZ UNIT #: [id number] ROOM: DOCTOR: SACHA PETERS M.D. BIRTHDATE: [birth year] SACHA PETERS MD CM:PNTRANS [id number] SACHA PETERS M.D. 12/11/16 0539 interface
== END | disposition home or self-care (01) ==
LOC: WOUNDCARE 02:37
DX: I87.2 Venous insufficiency (chronic) (peripheral) (principal); E11.622 Type 2 diabetes mellitus with other skin ulcer; L97.811 Non-pressure chronic ulcer of other part of right lower leg limited to breakdown of skin; L97.821 Non-pressure chronic ulcer of other part of left lower leg limited to breakdown of skin; I89.0 Lymphedema, not elsewhere classified; E11.22 Type 2 diabetes mellitus with diabetic chronic kidney disease; N18.9 Chronic kidney disease, unspecified; I48.91 Unspecified atrial fibrillation; Z87.891 Personal history of nicotine dependence; Z79.01 Long term (current) use of anticoagulants

== ENCOUNTER → 2016-12-17 | Outpatient (CLI) | payer MEDICARE, OTHER ==
--- NOTE | ~2016-12-17 | PR ---
[place], [place] PROGRESS NOTE NAME: SHEILA HERNANDEZ [facility] #: [id number] UNIT #: [id number] ROOM: DOCTOR: SACHA PETERS M.D. BIRTHDATE: [birth year] DOS: 12/17/2016 CHIEF COMPLAINT: Chronic wound of the right lower extremity. HISTORY OF PRESENT ILLNESS: This is an 81-year-old male with multiple medical problems, recurrent venous ulcerations and chronic bilateral lower extremity edema with lymphedema. He has some chronic renal failure as well. He presented last week with open wounds of the right lower extremity and severe edema after a recent hospitalization. We had used Adaptic, Maxorb and Tubigrip for edema control. He does not do well with compression therapy. We have tried compression wraps in the past, they have not improved his wounds in the past. So, we just stuck with Tubigrip. In any case, the wounds are getting smaller. He still has a fair amount of drainage with the posterior wound of the right lower extremity but it is getting smaller. There is still some discomfort associated with the wound. PHYSICAL EXAMINATION: VITAL SIGNS: He is afebrile, pulse is 60, respirations are 18 and blood pressure is 118/58. SKIN: The wound on the anterior lower extremity is 1 x 0.5 x 0.1. It looks clean. There is one area that has a dried eschar noted. This was selectively debrided and underneath that area was healed. This was accomplished with a curette. There was no bleeding. The patient tolerated the procedure well. The posterior leg wound on the right lower extremity is measuring 7 x 3 x 0.1. It looks fairly clean. There is no overt cellulitis. No debridement was done on this wound. ASSESSMENT AND PLAN: Chronic and recurrent venous ulcerations that seem to be improving with the current regimen. I would like to add a little silver to the wound on the distal right lower extremity due to the continued drainage, but overall it does appear stable and improved. Followup in 1 week. SACHA PETERS MD CM:LISA [id number] SACHA PETERS M.D. 12/17/16 1013 interface
== END | disposition home or self-care (01) ==
LOC: WOUNDCARE 00:51
DX: I87.2 Venous insufficiency (chronic) (peripheral) (principal); L97.811 Non-pressure chronic ulcer of other part of right lower leg limited to breakdown of skin; L97.821 Non-pressure chronic ulcer of other part of left lower leg limited to breakdown of skin

== ENCOUNTER → 2016-12-23 | Outpatient (CLI) | payer MEDICARE, OTHER | END | disposition home or self-care (01) | LOC: WOUNDCARE 02:02 | DX: E11.622 Type 2 diabetes mellitus with other skin ulcer (principal); I87.331 Chronic venous hypertension (idiopathic) with ulcer and inflammation of right lower extremity; L97.811 Non-pressure chronic ulcer of other part of right lower leg limited to breakdown of skin; I48.91 Unspecified atrial fibrillation; Z87.891 Personal history of nicotine dependence ==

== ENCOUNTER → 2017-01-01 | Outpatient (CLI) | payer MEDICARE, OTHER | END | disposition home or self-care (01) | LOC: WOUNDCARE 01:41 → US 01:41 → WOUNDCARE 14:28 | DX: L97.911 Non-pressure chronic ulcer of unspecified part of right lower leg limited to breakdown of skin (principal); I87.331 Chronic venous hypertension (idiopathic) with ulcer and inflammation of right lower extremity; I87.2 Venous insufficiency (chronic) (peripheral) ==

== ENCOUNTER → 2017-01-13 | Outpatient (CLI) | payer MEDICARE, OTHER | END | disposition home or self-care (01) | LOC: WOUNDCARE 03:57 | DX: I87.331 Chronic venous hypertension (idiopathic) with ulcer and inflammation of right lower extremity (principal); E11.622 Type 2 diabetes mellitus with other skin ulcer; L97.811 Non-pressure chronic ulcer of other part of right lower leg limited to breakdown of skin; I48.91 Unspecified atrial fibrillation; Z87.891 Personal history of nicotine dependence ==

== ENCOUNTER → 2017-01-20 | Outpatient (CLI) | payer MEDICARE, OTHER | LOC: WOUNDCARE 01:06 | DX: I87.331 Chronic venous hypertension (idiopathic) with ulcer and inflammation of right lower extremity (principal); E11.622 Type 2 diabetes mellitus with other skin ulcer; L97.811 Non-pressure chronic ulcer of other part of right lower leg limited to breakdown of skin; L97.821 Non-pressure chronic ulcer of other part of left lower leg limited to breakdown of skin; I48.91 Unspecified atrial fibrillation; Z87.891 Personal history of nicotine dependence ==

== ENCOUNTER → 2017-01-27 | Outpatient (CLI) | payer MEDICARE, OTHER | END | disposition home or self-care (01) | LOC: WOUNDCARE 04:21 | DX: E11.622 Type 2 diabetes mellitus with other skin ulcer (principal); L97.811 Non-pressure chronic ulcer of other part of right lower leg limited to breakdown of skin; L97.821 Non-pressure chronic ulcer of other part of left lower leg limited to breakdown of skin; I10 Essential (primary) hypertension; I48.91 Unspecified atrial fibrillation; Z87.891 Personal history of nicotine dependence ==

== ENCOUNTER → 2017-02-03 | Outpatient (CLI) | payer MEDICARE, OTHER | END | disposition home or self-care (01) | LOC: WOUNDCARE 03:33 | DX: E11.622 Type 2 diabetes mellitus with other skin ulcer (principal); L97.821 Non-pressure chronic ulcer of other part of left lower leg limited to breakdown of skin; L97.811 Non-pressure chronic ulcer of other part of right lower leg limited to breakdown of skin; I10 Essential (primary) hypertension; I48.91 Unspecified atrial fibrillation; Z87.891 Personal history of nicotine dependence ==

== ENCOUNTER 2017-02-10 10:43 | Emergency (ER) | payer MEDICARE, OTHER ==
[~2017-02-10] VITALS: Ht 190.5 cm; Wt 104.3 kg
[~2017-02-10 10:43] MED LIST changes: -VOLTAREN100 GM T
[2017-02-10 10:51] VITALS: BP 130/72
[2017-02-10 11:16] LABS: BASO % 0.4 % (0.0-1.0); EOS # 0.3 10*3/uL (0.0-0.4); HEMATOCRIT 26.5 % (42.0-52.0); HEMOGLOBIN 8.1 g/dl (14.0-18.0); LYMPH # 0.7 10*3/uL (1.3-4.4); LYMPH % 13.4 % (27.0-41.0); MEAN CELL VOLUME 93.6 fl (80.0-94.0); MEAN CORPUSCULAR HGB 28.6 pg (27.0-31.0); MEAN CORPUSCULAR HGB CONC 30.6 g/dl (33.0-37.0); MEAN PLATELET VOLUME 9.3 fl (9.6-12.3); MONO # 0.6 10*3/uL (0.1-1.0); MONO % 11.9 % (3.0-9.0); NEUT # 3.6 10*3/uL (2.3-7.9); NEUT % 67.7 % (47.0-73.0); PLATELET COUNT AUTOMATED 131 10*3/uL (130-400); RED BLOOD COUNT 2.83 10*6/uL (4.50-5.90); RED CELL DISTRI WIDTH 13.9 % (0-14.5); WHITE BLOOD COUNT 5.3 10*3/uL (4.8-10.8)
[2017-02-10] MEDS ORDERED: VOLTAREN100 GM T (11:21)
[2017-02-10 11:28] LABS: ACT PARTIAL THROMBO TIME 28.4 SECONDS (20.8-31.5); INTERNATIONAL NORM RATIO 1.5 (2.0-3.5)
[2017-02-10 11:31] LABS: ALBUMIN 3.3 gm/dl (3.1-4.5); CREATININE 2.23 mg/dL (0.70-1.30); POTASSIUM 4.3 mmol/L (3.5-5.1); TOTAL PROTEIN 7.1 gm/dL (6.4-8.2)
== END 2017-02-10 14:53 | disposition home or self-care (01) ==
LOC: ED 10:43
PROVIDERS: Emergency Medicine
DX: S41.112A Laceration without foreign body of left upper arm, initial encounter (principal); S00.03XA Contusion of scalp, initial encounter; D64.9 Anemia, unspecified; R79.1 Abnormal coagulation profile; E04.1 Nontoxic single thyroid nodule; N18.9 Chronic kidney disease, unspecified; M47.812 Spondylosis without myelopathy or radiculopathy, cervical region; Z79.01 Long term (current) use of anticoagulants; Z79.899 Other long term (current) drug therapy; Z88.2 Allergy status to sulfonamides; W10.8XXA Fall (on) (from) other stairs and steps, initial encounter; Y93.89 Activity, other specified; Y92.89 Other specified places as the place of occurrence of the external cause; Y99.9 Unspecified external cause status

== ENCOUNTER → 2017-02-10 | Outpatient (CLI) | payer MEDICARE, OTHER ==
[~2017-02-10] MED LIST changes: +VOLTAREN100 GM T
== END | disposition home or self-care (01) ==
LOC: WOUNDCARE 04:25
DX: E11.622 Type 2 diabetes mellitus with other skin ulcer (principal); L97.821 Non-pressure chronic ulcer of other part of left lower leg limited to breakdown of skin; L97.811 Non-pressure chronic ulcer of other part of right lower leg limited to breakdown of skin; I10 Essential (primary) hypertension; I48.91 Unspecified atrial fibrillation; I87.2 Venous insufficiency (chronic) (peripheral); Z87.891 Personal history of nicotine dependence

== ENCOUNTER 2017-07-06 07:46 | Emergency (ER) | payer MEDICARE, OTHER ==
[~2017-07-06] VITALS: Ht 195.5 cm; Wt 124.7 kg
[~2017-07-06 07:46] MED LIST changes: +VOLTAREN100 GM T
[2017-07-06 07:48] VITALS: BP 128/47
[2017-07-06 08:21] LABS: INTERNATIONAL NORM RATIO 2.1 (2.0-3.5)
[2017-07-06 08:24] LABS: BASO % 0.7 % (0.0-1.0); EOS # 0.3 10*3/uL (0.0-0.4); EOS % 5.8 % (1.0-4.0); HEMATOCRIT 34.1 % (42.0-52.0); HEMOGLOBIN 10.5 g/dl (14.0-18.0); LYMPH # 0.6 10*3/uL (1.3-4.4); LYMPH % 13.3 % (27.0-41.0); MEAN CELL VOLUME 96.1 fl (80.0-94.0); MEAN CORPUSCULAR HGB 29.6 pg (27.0-31.0); MEAN CORPUSCULAR HGB CONC 30.8 g/dl (33.0-37.0); MEAN PLATELET VOLUME 10.5 fl (9.6-12.3); MONO # 0.5 10*3/uL (0.1-1.0); MONO % 11.3 % (3.0-9.0); NEUT # 3.1 10*3/uL (2.3-7.9); NEUT % 68.5 % (47.0-73.0); PLATELET COUNT AUTOMATED 148 10*3/uL (130-400); RED BLOOD COUNT 3.55 10*6/uL (4.50-5.90); RED CELL DISTRI WIDTH 15.5 % (0-14.5); WHITE BLOOD COUNT 4.5 10*3/uL (4.8-10.8)
[2017-07-06 08:44] LABS: ALBUMIN 2.8 gm/dl (3.1-4.5); ALKALINE PHOSPHATASE 111 U/L (45-117); BUN 29 mg/dl (7-24); CHLORIDE 104 mmol/L (98-107); CREATININE 1.02 mg/dL (0.70-1.30); SGOT/AST 18 IU/L (3-35); SGPT/ALT 18 U/L (12-78); SODIUM 142 mmol/L (136-145); TOTAL PROTEIN 6.7 gm/dL (6.4-8.2)
== END 2017-07-06 09:31 | disposition home or self-care (01) ==
LOC: ED 07:46
PROVIDERS: Family Medicine
DX: S09.90XA Unspecified injury of head, initial encounter (principal); M54.2 Cervicalgia; M79.604 Pain in right leg; N18.9 Chronic kidney disease, unspecified; Z98.890 Other specified postprocedural states; Z79.4 Long term (current) use of insulin; Z79.01 Long term (current) use of anticoagulants; Z79.899 Other long term (current) drug therapy; Z88.2 Allergy status to sulfonamides; W06.XXXA Fall from bed, initial encounter; Y93.89 Activity, other specified; Y92.128 Other place in nursing home as the place of occurrence of the external cause; Y99.9 Unspecified external cause status

== ENCOUNTER → 2017-07-19 | Outpatient (CLI) | payer MEDICARE, OTHER | END | disposition home or self-care (01) | LOC: CT 01:04 | DX: M51.36 Other intervertebral disc degeneration, lumbar region (principal); M46.26 Osteomyelitis of vertebra, lumbar region; M48.061 Spinal stenosis, lumbar region without neurogenic claudication ==

== ENCOUNTER 2017-08-13 11:37 | Emergency (ER) | payer MEDICARE, OTHER ==
[~2017-08-13] VITALS: Wt 95.3 kg
[~2017-08-13 11:37] MED LIST changes: +NOVOLOG10 ML SQ; -NOVOLOG100 U/ML SC
[2017-08-13 12:02] LABS: HEMATOCRIT 28.7 % (42.0-52.0); HEMOGLOBIN 8.7 g/dl (14.0-18.0); MEAN CELL VOLUME 99.3 fl (80.0-94.0); MEAN CORPUSCULAR HGB 30.1 pg (27.0-31.0); MEAN CORPUSCULAR HGB CONC 30.3 g/dl (33.0-37.0); PLATELET COUNT AUTOMATED 122 10*3/uL (130-400); RED BLOOD COUNT 2.89 10*6/uL (4.50-5.90); WHITE BLOOD COUNT 8.1 10*3/uL (4.8-10.8)
[2017-08-13 12:11] LABS: ACT PARTIAL THROMBO TIME 32.5 SECONDS (20.8-31.5); INTERNATIONAL NORM RATIO 3.3 (2.0-3.5)
[2017-08-13 12:18] LABS: ALBUMIN 2.8 gm/dl (3.1-4.5); CREATININE 1.81 mg/dL (0.70-1.30); POTASSIUM 3.7 mmol/L (3.5-5.1); TOTAL PROTEIN 5.7 gm/dL (6.4-8.2)
[2017-08-13 12:21] LABS: BASOPHILS 1 % (0-1); OVALOCYTES FEW; PLATELET SUFFICIENCY LOW (NORMAL); TOTAL CELLS COUNTED 100 #CELLS
[2017-08-13] MEDS ORDERED: ZOFRAN4 MG PO (13:37)
[2017-08-13] MEDS ORDERED: LIDODERM1 EACH T (14:01)
[2017-08-13 14:45] VITALS: BP 77/44
== END 2017-08-13 16:01 | disposition short-term general hospital (02) ==
LOC: ED 11:37
PROVIDERS: Nurse Practitioner Family
DX: N30.90 Cystitis, unspecified without hematuria (principal); I95.9 Hypotension, unspecified; N18.9 Chronic kidney disease, unspecified; Z79.899 Other long term (current) drug therapy; Z88.2 Allergy status to sulfonamides; Z79.4 Long term (current) use of insulin; Z79.01 Long term (current) use of anticoagulants

== ENCOUNTER 2017-09-20 16:34 | Emergency (ER) | payer MEDICARE, OTHER ==
[~2017-09-20] VITALS: Ht 195.5 cm; Wt 93.4 kg
[~2017-09-20 16:34] MED LIST changes: +LIDODERM1 EACH T; +ZOFRAN4 MG PO
[2017-09-20 16:38] VITALS: BP 119/57
== END 2017-09-20 17:10 | disposition home or self-care (01) ==
LOC: ED 16:34
DX: T83.9XXA Unspecified complication of genitourinary prosthetic device, implant and graft, initial encounter (principal); N18.9 Chronic kidney disease, unspecified; Z88.2 Allergy status to sulfonamides; Z79.4 Long term (current) use of insulin; Z79.899 Other long term (current) drug therapy

== ENCOUNTER 2017-10-02 10:53 | Inpatient (IN) | payer MEDICARE, OTHER ==
[~2017-10-02] VITALS: Ht 195.5 cm; Wt 92.7 kg
--- NOTE | ~2017-10-02 | CON ---
[place], [place] REPORT OF CONSULTATION NAME: SHEILA HERNANDEZ UNIT #: [id number] ROOM: 409 DOCTOR: JEF CONCEPCIONELMER BIRTHDATE: [birth year] DOS: 10/04/2017 HISTORY OF PRESENT ILLNESS: The patient has presented with a history of anemia and he was found to have H and H of 86 and 28 with a platelet of 129. The patient with INR of 1.4. Abnormal labs including BUN and creatinine 48 and 1.4 respectively. Electrolytes balance, liver function test normal. Troponin normal. Chest x-ray, cardiomegaly without acute pulmonary disease. Hemoglobin A1c of 4.8. MRSA nares positive. Urinalysis 3+ bacteria in the urine. Urine cultures greater than 100,000 bacteria in the urine. PAST MEDICAL HISTORY: Associated with atrial fibrillation, anemia, chronic obstructive pulmonary disease, chronic renal insufficiency, degenerative joint disease and anticoagulation. PAST SURGICAL HISTORY: Cholecystectomy, total right knee prosthesis, appendectomy, pacemaker. SOCIAL HISTORY: Passive smoker. Nonalcohol consumer. FAMILY HISTORY: Noncontributory. ALLERGIES: SULFA. MEDICATIONS: At home includes a Coumadin therapy. REVIEW OF SYSTEMS: HEENT: Denies double vision, blurred vision. RESPIRATORY: Denies acute shortness of breath. CARDIOVASCULAR: Denies acute chest pain. DIGESTIVE SYSTEM: No hematemesis, no hematochezia. PHYSICAL EXAMINATION: VITAL SIGNS: Stable. HEENT: Head normocephalic, nontraumatic. Mouth and buccal mucosa benign. NECK: Supple, no thyromegaly, no cervical lymphadenopathy. CHEST: Symmetric anatomy, equal expansion. No wheeze, no rhonchi. HEART: Normal sinus rhythm, no gallop, no murmur. ABDOMEN: Soft. No hepato-organomegaly. Bowel sounds present. No pulsatile mass. EXTREMITIES: A 1+ edema. NEUROLOGIC: Fully alert, oriented to time, place, person. IMPRESSION: Anemia in the presence of chronic Coumadin therapy for atrial fibrillation, also anemia in the presence of chronic renal insufficiency, could be multifactorial. As far as anemia is concerned, guaiac positivity; however, could be contributed based on the presence of anticoagulants. PLAN AND DISCUSSION: I am going to proceed with EGD and colonoscopy today to ensure that there is no active source of pathology contributing to GI blood loss. [place], [place] REPORT OF CONSULTATION NAME: SHEILA HERNANDEZ UNIT #: [id number] ROOM: 409 DOCTOR: JEF CONCEPCION,ELMER BIRTHDATE: [birth year] OTHER ADJUNCTIVE DIAGNOSES: As dictated in past medical, surgical history. Workup in progress. ELMER FUCHS MD CM:CONSTR:REPORT OF CONSULTATION 1455 10/05/17 0248 interface
--- NOTE | ~2017-10-02 | O ---
[place], [place] OPERATIVE NOTE NAME: SHEILA HERNANDEZ UNIT #: [id number] ROOM: 409 DOCTOR: JEF CONCEPCIONELMER BIRTHDATE: [birth year] DOS: 10/04/2017 HISTORY OF PRESENT ILLNESS: The patient has presented 82-year-old with guaiac positivity and borderline anemia, undergoing investigation. The patient with a history of Coumadin intake and history of renal insufficiency is the contributor to his anemia. He has had H and H of 8.6 and 28 at the admission, he has urinary tract infection. He has renal insufficiency. His latest H and H have remained again 8.6 and 28. PROCEDURE: Today's procedure part of investigation of guaiac positivity is panendoscopy and colonoscopy. PREMEDICATION: Propofol. SCOPE: Olympus forward-viewing gastroscope Q10 video. REPORT: After putting the patient in left lateral position and application of lubricant to the scope, the scope was introduced. Thereafter, under direct visualization through the length of esophagus without difficulty. Hiatal hernia was noticed. Gastric pouch was entered. Presence of degraded blood in the gastric pouch signifying chronic gastritis with superficial bleeding, most likely under the influence of the not only uremia also Coumadin on board. Duodenal bulb, second and third parts carefully examined. Duodenitis mild degree seen. The patient extubated, tolerated procedure well. IMPRESSION: A small hiatal hernia, gastritis with presence of superficial blood loss from this gastritis with photographic series, duodenitis as well. PLAN AND DISCUSSION: We will proceed with colonoscopy. The patient has presented with chief complaint of guaiac positivity, undergoing investigation. PROCEDURE: Today's procedure part of investigation is colonoscopy. PREMEDICATION: Propofol. SCOPE: Olympus forward-viewing colonoscope 10L video. REPORT: After putting the patient in left lateral position and application of lubricant to the scope, the scope was introduced. Thereafter, under direct visualization, advanced through the length of colon without difficulty. Base of the cecum explored, appendiceal orifice identified, ileocecal valve was defined. Scope was gradually withdrawn from ascending, transverse, descending colon. The patient extubated, tolerated procedure well. IMPRESSION: Diverticulosis. In conclusion, the source of gastrointestinal blood loss in this gentleman is upper gastrointestinal gastritis. [place], [place] OPERATIVE NOTE NAME: SHEILA HERNANDEZ UNIT #: [id number] ROOM: 409 DOCTOR: JEF CONCEPCION,ELMER BIRTHDATE: [birth year] PLAN: Continuation with Protonix 40 mg daily, Carafate 1 gram before meals and clinical reassessment. Follow up on H and H chronically. ELMER FUCHS MD CM:OPRECORD:OPERATIVE NOTE [id number] ELMER FUCHS MD 10/04/17 1846 interface
[2017-10-02 10:54] VITALS: BP 120/50
[2017-10-02 11:16] LABS: BASO % 0.4 % (0.0-1.0); EOS # 0.4 10*3/uL (0.0-0.4); EOS % 6.6 % (1.0-4.0); HEMATOCRIT 28.2 % (42.0-52.0); HEMOGLOBIN 8.6 g/dl (14.0-18.0); LYMPH # 0.6 10*3/uL (1.3-4.4); LYMPH % 9.8 % (27.0-41.0); MEAN CELL VOLUME 93.7 fl (80.0-94.0); MEAN CORPUSCULAR HGB 28.6 pg (27.0-31.0); MEAN CORPUSCULAR HGB CONC 30.5 g/dl (33.0-37.0); MEAN PLATELET VOLUME 10.6 fl (9.6-12.3); MONO # 0.5 10*3/uL (0.1-1.0); MONO % 8.7 % (3.0-9.0); NEUT # 4.2 10*3/uL (2.3-7.9); NEUT % 74.1 % (47.0-73.0); PLATELET COUNT AUTOMATED 129 10*3/uL (130-400); RED BLOOD COUNT 3.01 10*6/uL (4.50-5.90); RED CELL DISTRI WIDTH 16.6 % (0-14.5); WHITE BLOOD COUNT 5.6 10*3/uL (4.8-10.8)
[2017-10-02 11:24] LABS: INTERNATIONAL NORM RATIO 1.4 (2.0-3.5)
[2017-10-02 11:37] LABS: ALKALINE PHOSPHATASE 106 U/L (45-117); BUN 48 mg/dl (7-24); CHLORIDE 111 mmol/L (98-107); CREATININE 1.47 mg/dL (0.70-1.30); POTASSIUM 3.7 mmol/L (3.5-5.1); SGOT/AST 18 IU/L (3-35); SODIUM 143 mmol/L (136-145); TOTAL PROTEIN 6.5 gm/dL (6.4-8.2)
[2017-10-02 11:38] LABS: SGPT/ALT 19 U/L (12-78)
[2017-10-02 11:41] LABS: TROPONIN I < 0.015 ng/ml (<0.045)
[2017-10-02 12:00] VITALS: BP 118/102
[2017-10-02 13:04] VITALS: BP 123/63
[2017-10-02 13:50] VITALS: BP 132/69
[2017-10-02] MEDS ORDERED: IRON325 M3 PO (14:36)
[2017-10-02] MEDS ORDERED: FLOMAX0.4 MG PO (14:37)
[2017-10-02] MEDS ORDERED: TRAZODONE50 MG PO (14:42)
[2017-10-02] MEDS ORDERED: URECHOLINE25 MG PO (14:42)
[2017-10-02] MEDS ORDERED: CYMBALTA60 MG PO (14:43)
[2017-10-02] MEDS ORDERED: ZYLOPRIM100 MG PO (14:44)
[2017-10-02] MEDS ORDERED: LEVEMIR100 UNIT/1 SQ (14:45)
[2017-10-02] MEDS ORDERED: GABAPENTIN100 M2 PO (14:45)
[2017-10-02] MEDS ORDERED: AMIODARONE HYD200 MG PO (14:46)
[2017-10-02] MEDS ORDERED: ACETAZOLAMIDE250 MG PO (14:46)
[2017-10-02 16:00] VITALS: BP 144/63
[2017-10-02 20:00] VITALS: BP 125/61
[2017-10-03] VITALS: BP 128/71
[2017-10-03 07:02] LABS: BASO % 0.3 % (0.0-1.0); EOS # 0.4 10*3/uL (0.0-0.4); EOS % 6.2 % (1.0-4.0); HEMOGLOBIN 8.8 g/dl (14.0-18.0); LYMPH # 0.6 10*3/uL (1.3-4.4); LYMPH % 8.9 % (27.0-41.0); MEAN CELL VOLUME 95.5 fl (80.0-94.0); MEAN CORPUSCULAR HGB CONC 29.3 g/dl (33.0-37.0); MEAN PLATELET VOLUME 11.5 fl (9.6-12.3); MONO # 0.6 10*3/uL (0.1-1.0); MONO % 9.2 % (3.0-9.0); NEUT # 4.7 10*3/uL (2.3-7.9); NEUT % 74.9 % (47.0-73.0); PLATELET COUNT AUTOMATED 137 10*3/uL (130-400); RED BLOOD COUNT 3.14 10*6/uL (4.50-5.90); RED CELL DISTRI WIDTH 16.5 % (0-14.5); WHITE BLOOD COUNT 6.3 10*3/uL (4.8-10.8)
[2017-10-03 07:29] LABS: INTERNATIONAL NORM RATIO 1.3 (2.0-3.5)
[2017-10-03 07:34] LABS: BUN 40 mg/dl (7-24); CHLORIDE 113 mmol/L (98-107); CHOLESTEROL 83 mg/dL (<200); CREATININE 1.34 mg/dL (0.70-1.30); FREE T4 0.97 ng/dl (0.76-1.46); PHOSPHOROUS 2.9 mg/dL (2.5-4.9); POTASSIUM 4.1 mmol/L (3.5-5.1); SODIUM 145 mmol/L (136-145); TRIGLYCERIDES 39 mg/dl (<150); VLDL CHOLESTEROL 8 mg/dL (6-40)
[2017-10-03 07:41] LABS: HDL CHOLESTEROL 41 mg/dl (40-60); LDL CHOLESTEROL 34 mg/dL (9-159)
[2017-10-03 08:00] VITALS: BP 122/60
[2017-10-03 08:06] LABS: VITAMIN D, 25-HYDROXY 26.1 ng/mL (30-100)
[2017-10-03 12:00] VITALS: BP 113/64
[2017-10-03 16:00] VITALS: BP 110/59
[2017-10-03 16:21] LABS: BILIRUBIN NEGATIVE (NEGATIVE); BLOOD TRACE-INTACT (NEGATIVE); CLARITY SL CLOUDY (CLEAR); COLOR YELLOW (YELLOW); GLUCOSE NEGATIVE (NEGATIVE); KETONE NEGATIVE (NEGATIVE); LEUKO ESTERASE 3+ (NEGATIVE); NITRITE POSITIVE (NEGATIVE); UROBILINOGEN 0.2 E.U./dl (0.2-1.0)
[2017-10-03 16:32] LABS: BACTERIA 3+; WBC 31-40 wbc/hpf (0-5)
[2017-10-03 20:00] VITALS: BP 124/64
[2017-10-04] VITALS (9 sets, daily range): BP systolic 106–131; BP diastolic 46–71
[2017-10-04 06:40] LABS: BASO % 0.2 % (0.0-1.0); EOS # 0.3 10*3/uL (0.0-0.4); EOS % 5.1 % (1.0-4.0); HEMATOCRIT 28.9 % (42.0-52.0); HEMOGLOBIN 8.6 g/dl (14.0-18.0); LYMPH # 0.6 10*3/uL (1.3-4.4); MEAN CELL VOLUME 95.4 fl (80.0-94.0); MEAN CORPUSCULAR HGB 28.4 pg (27.0-31.0); MEAN CORPUSCULAR HGB CONC 29.8 g/dl (33.0-37.0); MEAN PLATELET VOLUME 11.7 fl (9.6-12.3); MONO # 0.7 10*3/uL (0.1-1.0); MONO % 12.3 % (3.0-9.0); NEUT # 3.8 10*3/uL (2.3-7.9); PLATELET COUNT AUTOMATED 124 10*3/uL (130-400); RED BLOOD COUNT 3.03 10*6/uL (4.50-5.90); RED CELL DISTRI WIDTH 16.4 % (0-14.5); WHITE BLOOD COUNT 5.3 10*3/uL (4.8-10.8)
[2017-10-04 07:02] LABS: CHLORIDE 113 mmol/L (98-107); CREATININE 1.32 mg/dL (0.70-1.30); POTASSIUM 3.3 mmol/L (3.5-5.1); SODIUM 144 mmol/L (136-145)
[2017-10-04 07:07] LABS: BUN 30 mg/dl (7-24)
[2017-10-05] VITALS: BP 123/55
[2017-10-05 07:18] LABS: BASO % 0.2 % (0.0-1.0); EOS # 0.3 10*3/uL (0.0-0.4); EOS % 5.2 % (1.0-4.0); HEMATOCRIT 28.8 % (42.0-52.0); HEMOGLOBIN 8.6 g/dl (14.0-18.0); LYMPH # 0.7 10*3/uL (1.3-4.4); LYMPH % 13.3 % (27.0-41.0); MEAN CELL VOLUME 93.8 fl (80.0-94.0); MEAN CORPUSCULAR HGB CONC 29.9 g/dl (33.0-37.0); MEAN PLATELET VOLUME 10.1 fl (9.6-12.3); MONO # 0.7 10*3/uL (0.1-1.0); MONO % 14.3 % (3.0-9.0); NEUT # 3.3 10*3/uL (2.3-7.9); NEUT % 66.6 % (47.0-73.0); PLATELET COUNT AUTOMATED 108 10*3/uL (130-400); RED BLOOD COUNT 3.07 10*6/uL (4.50-5.90); RED CELL DISTRI WIDTH 16.3 % (0-14.5)
[2017-10-05 07:43] LABS: BUN 26 mg/dl (7-24); CHLORIDE 113 mmol/L (98-107); CREATININE 1.28 mg/dL (0.70-1.30); POTASSIUM 3.3 mmol/L (3.5-5.1); SODIUM 145 mmol/L (136-145)
[2017-10-05 07:51] LABS: INTERNATIONAL NORM RATIO 1.2 (2.0-3.5)
[2017-10-05 08:00] VITALS: BP 125/78
[2017-10-05 12:00] VITALS: BP 114/43
[2017-10-05] MEDS ORDERED: CARAFATE1 G1 PO (13:00)
[2017-10-05] MEDS ORDERED: PROTONIX40 MG PO (13:00)
== END 2017-10-05 14:54 | disposition home or self-care (01) | DRG 377 ==
LOC: ED 10:53 → EDHOLD 12:35 → 4E 12:35
PROVIDERS: Emergency Medicine; Family Medicine; Internal Medicine
PROC: 0DJ08ZZ Inspection of Upper Intestinal Tract, Via Natural or Artificial Opening Endoscopic (ICD-10-PCS; principal; 2017-10-04)
PROC: 0DJD8ZZ Inspection of Lower Intestinal Tract, Via Natural or Artificial Opening Endoscopic (ICD-10-PCS; principal; 2017-10-04)
DX: K29.71 Gastritis, unspecified, with bleeding (principal); N17.0 Acute kidney failure with tubular necrosis; D64.9 Anemia, unspecified; E86.0 Dehydration; D50.0 Iron deficiency anemia secondary to blood loss (chronic); I48.91 Unspecified atrial fibrillation; K57.91 Diverticulosis of intestine, part unspecified, without perforation or abscess with bleeding; E87.6 Hypokalemia; J44.9 Chronic obstructive pulmonary disease, unspecified; N18.3 Chronic kidney disease, stage 3 (moderate); K44.9 Diaphragmatic hernia without obstruction or gangrene; R33.9 Retention of urine, unspecified; Z96.651 Presence of right artificial knee joint; Z91.81 History of falling; Z95.0 Presence of cardiac pacemaker; Z90.49 Acquired absence of other specified parts of digestive tract; Z87.891 Personal history of nicotine dependence; Z82.49 Family history of ischemic heart disease and other diseases of the circulatory system; Z82.5 Family history of asthma and other chronic lower respiratory diseases; Z88.2 Allergy status to sulfonamides; Z91.041 Radiographic dye allergy status; Z79.899 Other long term (current) drug therapy; Z79.01 Long term (current) use of anticoagulants

== ENCOUNTER 2017-12-16 04:33 | Emergency (ER) | payer MEDICARE, OTHER ==
[~2017-12-16] VITALS: Ht 195.5 cm; Wt 96.6 kg
[~2017-12-16 04:33] MED LIST changes: +ACETAZOLAMIDE250 MG PO; +AMIODARONE HYD200 MG PO; +CARAFATE1 G1 PO; +CYMBALTA60 MG PO; +FLOMAX0.4 MG PO; +GABAPENTIN100 M2 PO; +IRON325 M3 PO; +LEVEMIR100 UNIT/1 SQ; +PROTONIX40 MG PO; +TRAZODONE50 MG PO; +URECHOLINE25 MG PO; +ZYLOPRIM100 MG PO
[2017-12-16 04:57] LABS: BASO % 0.3 % (0.0-1.0); EOS # 0.3 10*3/uL (0.0-0.4); EOS % 2.9 % (1.0-4.0); HEMATOCRIT 25.3 % (42.0-52.0); HEMOGLOBIN 7.5 g/dl (14.0-18.0); LYMPH # 0.5 10*3/uL (1.3-4.4); LYMPH % 5.1 % (27.0-41.0); MEAN CELL VOLUME 93.7 fl (80.0-94.0); MEAN CORPUSCULAR HGB 27.8 pg (27.0-31.0); MEAN CORPUSCULAR HGB CONC 29.6 g/dl (33.0-37.0); MEAN PLATELET VOLUME 9.4 fl (9.6-12.3); MONO # 0.8 10*3/uL (0.1-1.0); MONO % 7.7 % (3.0-9.0); NEUT # 8.1 10*3/uL (2.3-7.9); NEUT % 83.3 % (47.0-73.0); PLATELET COUNT AUTOMATED 184 10*3/uL (130-400); RED CELL DISTRI WIDTH 15.7 % (0-14.5); WHITE BLOOD COUNT 9.7 10*3/uL (4.8-10.8)
[2017-12-16 05:05] LABS: INTERNATIONAL NORM RATIO 3.1 (2.0-3.5)
[2017-12-16 05:14] LABS: CREATININE 2.53 mg/dL (0.70-1.30); POTASSIUM 3.9 mmol/L (3.5-5.1); TOTAL PROTEIN 7.1 gm/dL (6.4-8.2)
[2017-12-16 09:59] LABS: HEMATOCRIT 25.1 % (42.0-52.0); HEMOGLOBIN 7.5 g/dl (14.0-18.0)
[2017-12-16 10:30] VITALS: BP 99/34
== END 2017-12-16 10:35 | disposition short-term general hospital (02) ==
LOC: ED 04:33
PROVIDERS: Emergency Medicine
DX: N17.9 Acute kidney failure, unspecified (principal); D68.9 Coagulation defect, unspecified; I48.91 Unspecified atrial fibrillation; J44.9 Chronic obstructive pulmonary disease, unspecified; N18.9 Chronic kidney disease, unspecified; Z88.2 Allergy status to sulfonamides; Z79.899 Other long term (current) drug therapy; Z87.891 Personal history of nicotine dependence; Z90.49 Acquired absence of other specified parts of digestive tract; Z96.651 Presence of right artificial knee joint; Z95.0 Presence of cardiac pacemaker

== ENCOUNTER → 2018-02-07 | Outpatient (CLI) | payer MEDICARE, OTHER | END | disposition home or self-care (01) | LOC: ORTHO 01:56 | DX: S82.142D Displaced bicondylar fracture of left tibia, subsequent encounter for closed fracture with routine healing (principal); M17.12 Unilateral primary osteoarthritis, left knee; M85.88 Other specified disorders of bone density and structure, other site; Z91.81 History of falling; X58.XXXD Exposure to other specified factors, subsequent encounter ==

== ENCOUNTER → 2018-04-11 | Outpatient (CLI) | payer MEDICARE, OTHER ==
[~2018-04-11] MED LIST changes: +MEDROL DOSEPAK4 MG PO
== END | disposition home or self-care (01) ==
DX: S82.142D Displaced bicondylar fracture of left tibia, subsequent encounter for closed fracture with routine healing (principal); M17.12 Unilateral primary osteoarthritis, left knee; X58.XXXD Exposure to other specified factors, subsequent encounter

== ENCOUNTER 2018-09-15 13:52 | Emergency (ER) | payer MEDICARE, OTHER ==
[~2018-09-15] VITALS: Ht 195.5 cm; Wt 102.1 kg
[~2018-09-15 13:52] MED LIST changes: -MEDROL DOSEPAK4 MG PO
[2018-09-15 13:55] VITALS: BP 134/65
[2018-09-15] MEDS ORDERED: MEDROL DOSEPAK4 MG PO (15:00)
== END 2018-09-15 15:11 | disposition home or self-care (01) ==
LOC: ED 13:52
DX: M54.2 Cervicalgia (principal); Z87.891 Personal history of nicotine dependence; Z88.2 Allergy status to sulfonamides; Z91.048 Other nonmedicinal substance allergy status; Z79.01 Long term (current) use of anticoagulants; Z79.899 Other long term (current) drug therapy; Z90.49 Acquired absence of other specified parts of digestive tract; X58.XXXA Exposure to other specified factors, initial encounter; Y93.89 Activity, other specified; Y92.89 Other specified places as the place of occurrence of the external cause; Y99.8 Other external cause status

== ENCOUNTER → 2018-10-28 | Outpatient (CLI) | payer MEDICARE, OTHER ==
[~2018-10-28] MED LIST changes: +MEDROL DOSEPAK4 MG PO
== END | disposition home or self-care (01) ==
LOC: US 12:24
DX: E11.51 Type 2 diabetes mellitus with diabetic peripheral angiopathy without gangrene (principal); R22.41 Localized swelling, mass and lump, right lower limb; I10 Essential (primary) hypertension

== ENCOUNTER 2019-01-08 14:09 | Emergency (ER) | payer MEDICARE, OTHER ==
[~2019-01-08] VITALS: Ht 195.5 cm; Wt 103.4 kg
[2019-01-08 14:09] VITALS: BP 133/59
[2019-01-08] MEDS ORDERED: KEFLEX500 M1 PO (15:14)
== END 2019-01-08 15:31 | disposition home or self-care (01) ==
LOC: ED 14:09
DX: S61.012A Laceration without foreign body of left thumb without damage to nail, initial encounter (principal); Z88.2 Allergy status to sulfonamides; Z79.899 Other long term (current) drug therapy; Z79.01 Long term (current) use of anticoagulants; Z79.4 Long term (current) use of insulin; Z87.891 Personal history of nicotine dependence; W26.0XXA Contact with knife, initial encounter; Y93.89 Activity, other specified; Y92.89 Other specified places as the place of occurrence of the external cause; Y99.8 Other external cause status

== ENCOUNTER 2019-01-19 10:32 | Emergency (ER) | payer MEDICARE, OTHER ==
[~2019-01-19] VITALS: Wt 104.8 kg
[~2019-01-19 10:32] MED LIST changes: +KEFLEX500 M1 PO
[2019-01-19 10:33] VITALS: BP 120/60
== END 2019-01-19 10:55 | disposition home or self-care (01) ==
LOC: ED 10:32
DX: S61.012D Laceration without foreign body of left thumb without damage to nail, subsequent encounter (principal); Z88.2 Allergy status to sulfonamides; Z79.899 Other long term (current) drug therapy; Z79.01 Long term (current) use of anticoagulants; Z79.4 Long term (current) use of insulin; Z87.891 Personal history of nicotine dependence; W26.0XXD Contact with knife, subsequent encounter

== ENCOUNTER → 2019-01-28 | Outpatient (CLI) | payer MEDICARE, OTHER ==
[2019-01-28 08:35] LABS: BASO % 0.6 % (0.0-1.0); EOS # 0.4 10*3/uL (0.0-0.4); HEMATOCRIT 36.3 % (42.0-52.0); HEMOGLOBIN 10.7 g/dl (14.0-18.0); LYMPH # 0.7 10*3/uL (1.3-4.4); LYMPH % 11.2 % (27.0-41.0); MEAN CELL VOLUME 100.3 fl (80.0-94.0); MEAN CORPUSCULAR HGB 29.6 pg (27.0-31.0); MEAN CORPUSCULAR HGB CONC 29.5 g/dl (33.0-37.0); MEAN PLATELET VOLUME 10.3 fl (9.6-12.3); MONO # 0.7 10*3/uL (0.1-1.0); MONO % 11.2 % (3.0-9.0); NEUT # 4.7 10*3/uL (2.3-7.9); NEUT % 70.7 % (47.0-73.0); PLATELET COUNT AUTOMATED 158 10*3/uL (130-400); RED BLOOD COUNT 3.62 10*6/uL (4.50-5.90); RED CELL DISTRI WIDTH 15.5 % (0-14.5); WHITE BLOOD COUNT 6.6 10*3/uL (4.8-10.8)
[2019-01-28 09:07] LABS: ALBUMIN 3.3 gm/dl (3.1-4.5); CREATININE 1.7 mg/dL (0.70-1.30); POTASSIUM 3.7 mmol/L (3.5-5.1); TOTAL PROTEIN 6.9 gm/dL (6.4-8.2)
[2019-01-28 09:14] LABS: THYROID STIM HORMONE (HS) 5.79 uIU/ml (0.358-4.75)
[2019-01-28 10:02] LABS: VITAMIN D, 25-HYDROXY 14.6 ng/mL (30-100)
== END | disposition home or self-care (01) ==
LOC: LAB 07:52
PROVIDERS: Internal Medicine
DX: E11.9 Type 2 diabetes mellitus without complications (principal); I10 Essential (primary) hypertension; E55.9 Vitamin D deficiency, unspecified

== ENCOUNTER 2019-01-29 16:11 | Emergency (ER) | payer MEDICARE, OTHER ==
[~2019-01-29] VITALS: Ht 195.5 cm; Wt 104.3 kg
[2019-01-29 16:13] VITALS: BP 118/69
== END 2019-01-29 18:26 ==
LOC: ED 16:11
DX: T83.090A Other mechanical complication of cystostomy catheter, initial encounter (principal); I10 Essential (primary) hypertension; K21.9 Gastro-esophageal reflux disease without esophagitis; I25.10 Atherosclerotic heart disease of native coronary artery without angina pectoris; E11.9 Type 2 diabetes mellitus without complications; M10.9 Gout, unspecified; M19.90 Unspecified osteoarthritis, unspecified site; Z88.2 Allergy status to sulfonamides; Z79.899 Other long term (current) drug therapy; Z79.01 Long term (current) use of anticoagulants; Z79.4 Long term (current) use of insulin; Z87.891 Personal history of nicotine dependence; Z87.442 Personal history of urinary calculi; Y84.6 Urinary catheterization as the cause of abnormal reaction of the patient, or of later complication, without mention of misadventure at the time of the procedure; Y92.89 Other specified places as the place of occurrence of the external cause

== ENCOUNTER 2019-03-27 15:23 | Emergency (ER) | payer MEDICARE, OTHER ==
[~2019-03-27] VITALS: Ht 195.5 cm; Wt 108.0 kg
[2019-03-27 15:24] VITALS: BP 114/56
[2019-03-27 16:30] LABS: BASO % 0.8 % (0.0-1.0); EOS # 0.3 10*3/uL (0.0-0.4); EOS % 6.3 % (1.0-4.0); HEMATOCRIT 34.6 % (42.0-52.0); HEMOGLOBIN 10.2 g/dl (14.0-18.0); LYMPH # 0.6 10*3/uL (1.3-4.4); LYMPH % 12.1 % (27.0-41.0); MEAN CELL VOLUME 101.8 fl (80.0-94.0); MEAN CORPUSCULAR HGB CONC 29.5 g/dl (33.0-37.0); MEAN PLATELET VOLUME 10.9 fl (9.6-12.3); MONO # 0.6 10*3/uL (0.1-1.0); NEUT # 3.6 10*3/uL (2.3-7.9); NEUT % 69.4 % (47.0-73.0); PLATELET COUNT AUTOMATED 145 10*3/uL (130-400); RED CELL DISTRI WIDTH 14.6 % (0-14.5); WHITE BLOOD COUNT 5.2 10*3/uL (4.8-10.8)
[2019-03-27 16:39] LABS: INTERNATIONAL NORM RATIO 2.2 (2.0-3.5)
[2019-03-27 16:44] LABS: ALBUMIN 3.3 gm/dl (3.1-4.5); CREATININE 2.08 mg/dL (0.70-1.30); POTASSIUM 4.1 mmol/L (3.5-5.1); TOTAL PROTEIN 6.6 gm/dL (6.4-8.2)
[2019-03-27 17:28] LABS: BILIRUBIN 2+ (NEGATIVE); BLOOD 3+ (NEGATIVE); CLARITY CLOUDY (CLEAR); COLOR BROWN (YELLOW); GLUCOSE NEGATIVE (NEGATIVE); KETONE TRACE (NEGATIVE); LEUKO ESTERASE 2+ (NEGATIVE); NITRITE POSITIVE (NEGATIVE); PH 8.5 (5.0-9.0); SPECIFIC GRAVITY 1.015 (1.005-1.030)
[2019-03-27 17:46] LABS: BACTERIA 1+; MUCOUS 1+; RBC TNTC rbc/hpf (0-2)
[2019-03-27] MEDS ORDERED: CIPROFLOXACIN250 MG PO (18:14)
== END 2019-03-27 18:20 | disposition home or self-care (01) ==
LOC: ED 15:23
PROVIDERS: Nurse Practitioner Family
DX: N39.0 Urinary tract infection, site not specified (principal); I48.91 Unspecified atrial fibrillation; I10 Essential (primary) hypertension; K21.9 Gastro-esophageal reflux disease without esophagitis; E11.9 Type 2 diabetes mellitus without complications; I25.10 Atherosclerotic heart disease of native coronary artery without angina pectoris; Z86.14 Personal history of Methicillin resistant Staphylococcus aureus infection; Z79.01 Long term (current) use of anticoagulants; Z88.2 Allergy status to sulfonamides; Z91.048 Other nonmedicinal substance allergy status; Z79.2 Long term (current) use of antibiotics; Z79.899 Other long term (current) drug therapy; Z79.4 Long term (current) use of insulin; Z90.49 Acquired absence of other specified parts of digestive tract; Z87.891 Personal history of nicotine dependence; Z96.0 Presence of urogenital implants

== ENCOUNTER 2019-05-08 13:04 | Inpatient (IN) | payer MEDICARE, OTHER ==
[~2019-05-08] VITALS: Ht 195.6 cm; Wt 104.3 kg
[~2019-05-08 13:04] MED LIST changes: +CIPROFLOXACIN250 MG PO
[2019-05-08 13:30] VITALS: BP 114/89
--- NOTE | 2019-05-08 13:30 | NUR ---
A 84, admitted to 5E, under the services of CADE Mccurdy MD with a diagnosis of UTI, AFIB. Chief complaint is BLOOD IN URINE. Patient arrived via wheel chair from [place]. Monitor applied. Initial assessment completed. Vital signs taken and recorded. CADE MCCURDY MD notified of admission to the unit. Orders received. See assessment for past medical history, medications and allergies. Patient and/or family oriented to unit. [address] visitation policy reviewed. Clothing/patient valuable form completed. AVI MCKEON
--- NOTE | 2019-05-08 15:12 | NUR ---
CALLED DR. ROBLES ORDERS TAKEN AND REVIEWED.
[2019-05-08 15:46] LABS: BASO % 0.6 % (0.0-1.0); EOS # 0.4 10*3/uL (0.0-0.4); EOS % 6.8 % (1.0-4.0); HEMATOCRIT 32.8 % (42.0-52.0); HEMOGLOBIN 9.5 g/dl (14.0-18.0); LYMPH # 0.7 10*3/uL (1.3-4.4); LYMPH % 13.9 % (27.0-41.0); MEAN CELL VOLUME 102.2 fl (80.0-94.0); MEAN CORPUSCULAR HGB 29.6 pg (27.0-31.0); MONO # 0.6 10*3/uL (0.1-1.0); NEUT # 3.5 10*3/uL (2.3-7.9); NEUT % 67.1 % (47.0-73.0); PLATELET COUNT AUTOMATED 136 10*3/uL (130-400); RED BLOOD COUNT 3.21 10*6/uL (4.50-5.90); RED CELL DISTRI WIDTH 15.2 % (0-14.5); WHITE BLOOD COUNT 5.2 10*3/uL (4.8-10.8)
[2019-05-08 16:00] VITALS: BP 145/77
--- NOTE | 2019-05-08 16:00 | NUR ---
PT RESTING IN BED. RESP-EASY AND REGULAR. NO C/O AT THIS TIME. CALL LIGHT IN REACH. SEE SHIFT ASSESSMENT.
[2019-05-08 16:23] LABS: CREATININE 1.76 mg/dL (0.70-1.30); POTASSIUM 4.3 mmol/L (3.5-5.1)
[2019-05-08] MEDS ORDERED: LASIX20 MG PO (18:34)
[2019-05-08] MEDS ORDERED: VITAMIN B121000 MC1 PO (18:36)
[2019-05-08] MEDS ORDERED: ELIQUIS5 M1 PO (18:38)
--- NOTE | 2019-05-08 18:41 | NUR ---
FAMILY BROUGHT IN LIST OF MEDICATION. ADDED AND ORDERED PER DR. ROBLES
[2019-05-08 20:00] VITALS: BP 126/74
--- NOTE | 2019-05-08 21:00 | NUR ---
RESTING IN BED WITH NO DISTRESS NOTED. RESPIRATIONS EASY. LUNGS DIMINISHED, CLEAR. PULSE OX 96% RA. CLAIMS INFREQ PRODUCTIVE COUGH. SUPRA-PUBIC CATH PATENT DRAINING TEA COLORED URINE. BLE EDEMA. CALL LIGHT WITHIN REACH. NO VOICED COMPLAINTS. BED ALARM MAINTAINED FOR SAFETY
[2019-05-09] VITALS: BP 114/41
--- NOTE | 2019-05-09 | NUR ---
SLEEPING. NO DISTRESS NOTED. RESPIRATIONS EASY. VSS. CALL LIGHT WITHIN REACH.
--- NOTE | 2019-05-09 00:10 | NUR ---
24 HR chart check completed.
--- NOTE | 2019-05-09 06:00 | NUR ---
SLEPT THROUGHOUT NIGHT WITH NO DISTRESS NOTED. RESPIRATIONS EASY. CALL LIGHT WITHIN REACH. NO VOICED COMPLAINTS THIS SHIFT
[2019-05-09 08:00] VITALS: BP 126/63
--- NOTE | 2019-05-09 08:08 | NUR ---
SHEILA HERNANDEZ [id number] Please refer to the physician's history and physical for past medical history, comorbid conditions, and allergies. Diagnosis: ESBL UTI A FIB Tavo Score: 17,AT RISK WOUND DESCRIPTIONS: Wound Number: 1 Location of the wound: below 5th digit on hand Type of wound: scab Thickness: Partial Size: 0.5cm x 0.2cm x <0.1cm Tunneling: none Undermining: none Sinus Tract: none Presence of Exudate: none Amount: None Color: Brown, red Odor: None Periwound Skin Appearance: Normal Wound edges: closed Pain (associated with wound): none at time of assessment How does patient state this happened? pt stated this could be from him bumping into things with his wheelchair because his door frames are tight or from his dog's nails. Wound Number: 2 Location of the wound: left wrist Type of wound: scab Thickness: Partial Size: 0.4cm x 0.6cm x <0.1cm Tunneling: none Undermining: none Sinus Tract: none Presence of Exudate: none Amount: None Color: Brown, red Odor: None Periwound Skin Appearance: Normal Wound edges: closed Pain (associated with wound): none at time of assessment How does patient state this happened? pt stated this could be from him bumping into things with his wheelchair because his door frames are tight or from his dog's nails. Wound Number: 3 Location of the wound: left outer wrist Type of wound: scab Thickness: Partial Size: 1.0cm x 2.0cm x <0.1cm Tunneling: none Undermining: none Sinus Tract: none Presence of Exudate: none Amount: None Color: Brown, red Odor: None Periwound Skin Appearance: Normal Wound edges: closed Pain (associated with wound): none at time of assessment How does patient state this happened? pt stated this could be from him bumping into things with his wheelchair because his door frames are tight or from his dog's nails. Wound Number: 4 & 6 Location of the wound: right medial aspect of arm Type of wound: skin tear Thickness: Partial Size: 0.5cm x 2.0cm x 0.1cm Tunneling: none Undermining: none Sinus Tract: none Presence of Exudate: Light Amount: serosanguineous Color: Red Odor: None Periwound Skin Appearance: Normal Wound edges: approximated Pain (associated with wound): none at time of assessment How does patient state this happened? pt stated this could be from him bumping into things with his wheelchair because his door frames are tight or from his dog's nails. Wound Number: 5 Location of the wound: right lateral forearm Type of wound: skin tear Thickness: Partial Size: 0.5cm x 0.7cm x <0.1cm Tunneling: none Undermining: none Sinus Tract: none Presence of Exudate: serosangunieous Amount: light Color: Red Odor: None Periwound Skin Appearance: Normal Wound edges: closed Pain (associated with wound): none at time of assessment How does patient state this happened? pt stated this could be from him bumping into things with his wheelchair because his door frames are tight or from his dog's nails. Wound Number: 7 Location of the wound: left proximal inner lower leg Thickness: Partial Size: 1.0cm x 0.5cm x <0.1cm Tunneling: none Undermining: none Sinus Tract: none Presence of Exudate: none Amount: None Color: Red Odor: None Periwound Skin Appearance: Normal Wound edges: closed Pain (associated with wound): none at time of assessment How does patient state this happened? pt stated this could be from him bumping into things with his wheelchair because his door frames are tight or from his dog's nails. Wound Number: 8 Location of the wound: left distal inner lower leg Thickness: Partial Size: 0.7cm x 0.4cm x <0.1cm Tunneling: none Undermining: none Sinus Tract: none Presence of Exudate: none Amount: None Color: Red Odor: None Periwound Skin Appearance: Normal Wound edges: closed Pain (associated with wound): none at time of assessment How does patient state this happened? pt stated this could be from him bumping into things with his wheelchair because his door frames are tight or from his dog's nails. Wound Number: 9 Location of the wound: left posterior left leg Thickness: Partial Size: 1.5cm x 0.7cm x 0.1cm Tunneling: none Undermining: none Sinus Tract: none Presence of Exudate: Serosanguineous Amount: Light Color: Red Odor: None Periwound Skin Appearance: Normal Wound edges: approximated Pain (associated with wound): none at time of assessment How does patient state this happened? pt stated this could be from him bumping into things with his wheelchair because his door frames are tight or from his dog's nails. Wound Number: 10 Location of the wound: left 5th toe lateral Thickness: Full Size: 0.6cm x 0.3cm x <0.1cm Tunneling: none Undermining: none Sinus Tract: none Presence of Exudate: none Amount: None Color: Brown, Yellow Odor: None Periwound Skin Appearance: Normal Wound edges: closed Pain (associated with wound): none at time of assessment How does patient state this happened? pt stated this could be from him bumping into things with his wheelchair because his door frames are tight or from his dog's nails. Wound Number: 11 Location of the wound: right lower leg outer no open areas at time of assessment. no drainage noted at time of assessment Wound Number: 12 Location of the wound: right proximal lower leg no open areas at time of assessment. No drainage noted at time of assessment. Wound Number: 13 Location of the wound: right medial aspect of lower leg Thickness: Partial Size: 1.5cm x 0.8cm x 0.1cm Tunneling: none Undermining: none Sinus Tract: none Presence of Exudate: serosanguineous Amount: Light Color: Red Odor: None Periwound Skin Appearance: Normal Wound edges: closed Pain (associated with wound): none at time of assessment How does patient state this happened? pt stated this could be from him bumping into things with his wheelchair because his door frames are tight or from his dog's nails. Wound Number: 14 Location of the wound: right distal lower leg Thickness: Partial Size: 2.0cm x 0.8cm x <0.1cm Tunneling: none Undermining: none Sinus Tract: none Presence of Exudate: serosanguineous Amount: light Color: Red Odor: None Periwound Skin Appearance: Normal Wound edges: closed Pain (associated with wound): none at time of assessment How does patient state this happened? pt stated this could be from him bumping into things with his wheelchair because his door frames are tight or from his dog's nails. Wound Number: 15 Location of the wound: right medial aspect of great toe Thickness: Full Size: 2.0cm x 1.7cm x 0.1cm Tunneling: none Undermining: none Sinus Tract: none Presence of Exudate: serosanguineous Amount: light Color: Red, yellow, green Odor: None Periwound Skin Appearance: erythema Wound edges: closed Pain (associated with wound): none at time of assessment How does patient state this happened? pt stated this could be from him bumping into things with his wheelchair because his door frames are tight or from his dog's nails. Wound Number: 16 Right great toenail is black in color no drainage at time of assessment no open areas noted at base of toenail. Wound Number: 17 Location of the wound: right 2nd toe Thickness: Partial Size: 0.3cm x 0.2cm x 0.1cm Tunneling: none Undermining: none Sinus Tract: none Presence of Exudate: serosangunieous Amount: light Color: Red Odor: None Periwound Skin Appearance: Normal Wound edges: approximated Pain (associated with wound): none at time of assessment How does patient state this happened? pt stated this could be from him bumping into things with his wheelchair because his door frames are tight or from his dog's nails. Wound Number: 18 Location of the wound: left medial wrist Type of wound: skin tear Thickness: Partial Size: 0.3cm x 0.2cm x <0.1cm Tunneling: none Undermining: none Sinus Tract: none Presence of Exudate: serosanguineous Amount: light Color: Red Odor: None Periwound Skin Appearance: Normal Wound edges: approximated Pain (associated with wound): none at time of assessment How does patient state this happened? pt stated this could be from him bumping into things with his wheelchair because his door frames are tight or from his dog's nails. Wound Number: 19 Location of the wound: left 5th toe medial Thickness: Partial Size: 0.2cm x 0.1cm x <0.1cm Tunneling: none Undermining: none Sinus Tract: none Presence of Exudate: none Amount: None Color: Brown, red Odor: None Periwound Skin Appearance: Normal Wound edges: closed Pain (associated with wound): none at time of assessment How does patient state this happened? pt stated this could be from him bumping into things with his wheelchair because his door frames are tight or from his dog's nails. Wound Number: 20 Location of the wound: left 4th toe Thickness: Partial Size: 0.1cm x 0.3cm x <0.1cm Tunneling: none Undermining: none Sinus Tract: none Presence of Exudate: none Amount: None Color: Brown, red Odor: None Periwound Skin Appearance: Normal Wound edges: closed Pain (associated with wound): none at time of assessment How does patient state this happened? pt stated this could be from him bumping into things with his wheelchair because his door frames are tight or from his dog's nails. Wound Number: 21 Location of the wound: left 2nd toe lateral Thickness: Partial Size: 0.1cm x 0.1cm x <0.1cm Tunneling: none Undermining: none Sinus Tract: none Presence of Exudate: none Amount: None Color: Brown, red Odor: None Periwound Skin Appearance: Normal Wound edges: closed Pain (associated with wound): none at time of assessment How does patient state this happened? pt stated this could be from him bumping into things with his wheelchair because his door frames are tight or from his dog's nails. Wound Number: 22 Location of the wound: left 2nd toe medial Thickness: Partial Size: 0.4cm x 0.3cm x <0.1cm Tunneling: none Undermining: none Sinus Tract: none Presence of Exudate: none Amount: None Color: Brown, red Odor: None Periwound Skin Appearance: Normal Wound edges: closed Pain (associated with wound): none at time of assessment How does patient state this happened? pt stated this could be from him bumping into things with his wheelchair because his door frames are tight or from his dog's nails. Wound Number: 23 Location of the wound: base of left great toe Thickness: Partial Size: 0.3cm x 0.2cm x <0.1cm Tunneling: none Undermining: none Sinus Tract: none Presence of Exudate: none Amount: None Color: Brown, red Odor: None Periwound Skin Appearance: Normal Wound edges: closed Pain (associated with wound): none at time of assessment How does patient state this happened? pt stated this could be from him bumping into things with his wheelchair because his door frames are tight or from his dog's nails. Wound Number: 24 Location of the wound: right 3rd toe Thickness: Partial Size: 0.2cm x 0.2cm x 0.1cm Tunneling: none Undermining: none Sinus Tract: none Presence of Exudate: Serosanguineous Amount: Light Color: Red Odor: None Periwound Skin Appearance: Normal Wound edges: approximated Pain (associated with wound): none at time of assessment How does patient state this happened? pt stated this could be from him bumping into things with his wheelchair because his door frames are tight or from his dog's nails. Surface the patient is resting on: Isoflex SKIN PREVENTION RECOMMENDATION: 1. Pressure redistribution support surface as appropriate 2. Elevate heels 3. Remove boots/TEDS every shift and reapply 4. Head of bed 30 degrees as tolerated 5. Assess nutrition and hydration 6. Manage moisture 7. Avoid the use of containment devices while in bed 8. Use absorptive products on surfaces limit layers of linens on bed 9. Turn and reposition every 1-2 hours in bed and every 1 hour in chair as tolerated 10. Weight shifts every 15 minutes while up in chair 11. Offloading with pillows or device to keep heels elevated off bed 12. Monitor skin at least every shift 13. Inspect under medical devices twice a day WOUND TREATMENT RECOMMENDATIONS: Patient states he follows in the wound care center and wants to follow up there upon discharge. Consult podiatry for areas to bilateral lower extremities. Venous and arterial studies due to non-healing wounds. Skin tear guidelines: Cleanse left medial wrist with nss and apply sureprep around the wound hydrogel to wound bed and cover with bandaid every 2 days and prn for soiling. Skin tear guidelines: Cleanse right medial arm and right lateral arm with nss and apply sureprep around the wound hydrogel to wound bed and cover with optifoam gentle every 2 days and prn for soiling. Partial thickness guidelines: Cleanse left proximal inner lower leg, left distal inner lower leg, left posterior lower leg, right medial aspect of lower leg, right distal aspect of lower leg, with nss and apply sureprep around the wound therahoney sheets to wound bed and cover with optifoam gentle every 2 days and prn for soiling. Apply sureprep to left 5th toe medial, left 5th toe lateral left 4th toe, left 2nd toe medial, left 2nd toe lateral, base of left great toe, right 3rd toe, right 2nd toe then cover with banaids daily and prn for soiling. Full thickness guidelines: Cleanse right great toe with nss and apply sureprep around the wound therahoney sheet to base of right great toe and cover with dsd daily and prn for soiling. Heel raiser pro boots to bilateral feet
--- NOTE | 2019-05-09 08:30 | NUR ---
PT RESTING IN BED. RESP-EASY AND REGULAR. NO C/O AT THIS TIME. WOUND CARE NURSE IN TO SEE PT. DRESSINGS CHANGED. CALL LIGHT IN REACH. SEE SHIFT ASSESSMENT.
[2019-05-09 09:53] LABS: BASO % 0.8 % (0.0-1.0); EOS # 0.3 10*3/uL (0.0-0.4); EOS % 6.6 % (1.0-4.0); HEMOGLOBIN 9.4 g/dl (14.0-18.0); LYMPH # 0.7 10*3/uL (1.3-4.4); LYMPH % 13.7 % (27.0-41.0); MEAN CELL VOLUME 100.6 fl (80.0-94.0); MEAN CORPUSCULAR HGB 29.6 pg (27.0-31.0); MEAN CORPUSCULAR HGB CONC 29.4 g/dl (33.0-37.0); MONO # 0.5 10*3/uL (0.1-1.0); MONO % 10.5 % (3.0-9.0); NEUT # 3.4 10*3/uL (2.3-7.9); PLATELET COUNT AUTOMATED 127 10*3/uL (130-400); RED BLOOD COUNT 3.18 10*6/uL (4.50-5.90); RED CELL DISTRI WIDTH 15.3 % (0-14.5)
[2019-05-09 10:29] LABS: CREATININE 1.61 mg/dL (0.70-1.30)
--- NOTE | 2019-05-09 10:30 | NUR ---
Crusher Loader Equipment Operator in to talk to patient. Patient states lives at home alone with his step-son checking in on him. There are 0 steps in the home. Physician: Dr. Kenia Burton Pharmacy: [facility] Home health services: [facility] currently and would like to resume Patient's level of ADLs: MINIMAL ASSIST Patient has working utilities: yes DME: walker, cane Follow-up physician's appointment after d/c: he prefers to make his own follow up appt after discharge Does patient want to access PORTAL?: no Discharge plan discussed with patient. He lives at home alone with his step-son checking in on him. He is independent in his ADLs and ambulates with a walker. Discussed short term SNF and he refuses. Discussed home health care services and he currently has [facility] and would like to resume those services upon discharge. When medically stable and home IV antibiotics are set up he will be discharged to home. His step-son will provide transportation on discharge. ANGIE HAAS
--- NOTE | 2019-05-09 10:48 | NUR ---
Nutritional Support Services Note: Pt is on a regular diet consuming 100% of meals. Several scabs and skin tears are noted to legs, toes, and arms. Will recommend pt to have a night snack. Continue to encourage good PO intakes to support wound healing. Will follow if needed. PHOEBE Suarez internal grinding machine operator
--- NOTE | 2019-05-09 11:58 | NUR ---
Message left for Yan Navarro, step-son, at [phone] regarding discharge planning and home IV antibiotics. Awaiting return call.
[2019-05-09 12:00] VITALS: BP 99/41
--- NOTE | 2019-05-09 12:00 | NUR ---
PT SITTING UP IN RECLINER CHAIR WITH VISITOR AT HIS SIDE. NO C/O AT THIS TIME. CALL LIGHT IN REACH.
--- NOTE | 2019-05-09 12:02 | NUR ---
Spoke to step-son, Yan, regarding home IV antibiotics. He states he already knows how to administer them as he has done them in the past. Updated patient.
--- NOTE | 2019-05-09 13:49 | NUR ---
Faxed referral to [facility] for home IV antibiotics of Merrem 1 gm IV BID x [address] Burton. Awaiting response.
--- NOTE | 2019-05-09 13:52 | NUR ---
Faxed home health care referral to [facility]
--- NOTE | 2019-05-09 15:00 | NUR ---
PT SITTING UP IN RECLINER. RESP-EASY AND REGULAR. NO C/O AT THIS TIME. BODY ALARM ON. CALL LIGHT IN REACH.
--- NOTE | 2019-05-09 15:16 | NUR ---
Spoke to Iraida from [facility]. They sent the referral to their [place] office due to the patient being a [place] resident. Office # [phone], fax # [phone]. Will sent prescription to [place] when available.
--- NOTE | 2019-05-09 15:56 | NUR ---
Nursing screen received and chart reviewed. Patiet admitted for ESBL and IV antibiotics. If patient has a decline in ADLs, mobility, or transfers, please send OT orders. Thank you. Dorcas Huff, OTR/L
--- NOTE | 2019-05-09 18:00 | NUR ---
SITTING UP IN RECLINER CHAIR EATING. TOLERATED ROUTINE MED WITH NO PROBLEM. CALL LIGHT IN REACH.
[2019-05-09 20:00] VITALS: BP 111/57
--- NOTE | 2019-05-09 22:36 | NUR ---
24 HR chart check completed.
[2019-05-10] VITALS: BP 106/43
[2019-05-10 07:42] LABS: BASO % 0.6 % (0.0-1.0); EOS # 0.3 10*3/uL (0.0-0.4); HEMATOCRIT 31.1 % (42.0-52.0); HEMOGLOBIN 9.2 g/dl (14.0-18.0); LYMPH # 0.5 10*3/uL (1.3-4.4); MEAN CELL VOLUME 99.4 fl (80.0-94.0); MEAN CORPUSCULAR HGB 29.4 pg (27.0-31.0); MEAN CORPUSCULAR HGB CONC 29.6 g/dl (33.0-37.0); MEAN PLATELET VOLUME 10.8 fl (9.6-12.3); MONO # 0.6 10*3/uL (0.1-1.0); MONO % 11.2 % (3.0-9.0); NEUT # 3.4 10*3/uL (2.3-7.9); PLATELET COUNT AUTOMATED 142 10*3/uL (130-400); RED BLOOD COUNT 3.13 10*6/uL (4.50-5.90); RED CELL DISTRI WIDTH 15.2 % (0-14.5); WHITE BLOOD COUNT 4.9 10*3/uL (4.8-10.8)
--- NOTE | 2019-05-10 07:47 | NUR ---
PHYSICAL THERAPY Screen and PT eval received will follow, thank you Maricruz Vences PT
[2019-05-10 07:57] LABS: CREATININE 1.84 mg/dL (0.70-1.30); POTASSIUM 3.9 mmol/L (3.5-5.1)
[2019-05-10 08:00] VITALS: BP 117/70
--- NOTE | 2019-05-10 08:41 | NUR ---
PT RESTING IN BED/ NO DISTRESS NOTED. WILL MONITOR
--- NOTE | 2019-05-10 09:03 | NUR ---
SERGIOIP FOR MERREM FAXED TO [facility] OFFICE AT [phone].
--- NOTE | 2019-05-10 10:53 | NUR ---
PT REFUSED WOUND DRESSINGS TO BE REMOVED FOR DC WOUND PHOTOS
--- NOTE | 2019-05-10 11:20 | NUR ---
Discharge instructions reviewed with patient/family. Patient receptive and verbalizes understanding. Follow-up care arranged. Written instructions given to patient/family. GREGORIA PEÑA
--- NOTE | 2019-05-10 11:25 | NUR ---
PER ALMA DELIA FROM [facility] [place] SHE TALKED WITH STEP SON ABOUT COPAY FOR MEDS AND SUPPLIES AND THEY ARE OK WITH COST. PT NEXT DOSE OF MERREM IS DUE AT 4PM AND SHE STATES THEY CAN HAVE MED DELIVERED BY THEN. SPOKE WITH NARCISA FROM [facility] AND THEY CAN SEE PT TODAY AT 4PM TO START MED. INFORMED GREGORIA OLIVER THAT PT CAN BE DISCHARGED TO HOME TODAY.
== END 2019-05-10 11:20 | disposition home or self-care (01) | DRG 690 ==
LOC: 5E 13:04
PROVIDERS: ADMIT Internal Medicine
DX: N39.0 Urinary tract infection, site not specified (principal); I48.21 Permanent atrial fibrillation; Z16.12 Extended spectrum beta lactamase (ESBL) resistance; B96.29 Other Escherichia coli [E. coli] as the cause of diseases classified elsewhere; R62.7 Adult failure to thrive; N18.3 Chronic kidney disease, stage 3 (moderate); S80.922A Unspecified superficial injury of left lower leg, initial encounter; S80.921A Unspecified superficial injury of right lower leg, initial encounter; Z68.27 Body mass index [BMI] 27.0-27.9, adult; Z79.01 Long term (current) use of anticoagulants

== ENCOUNTER → 2019-10-16 | Outpatient (CLI) | payer MEDICARE, OTHER ==
[~2019-10-16] MED LIST changes: +ELIQUIS5 M1 PO; +LASIX20 MG PO; +VITAMIN B121000 MC1 PO
[2019-10-16 08:56] LABS: CHOLESTEROL 106 mg/dL (<200); HDL CHOLESTEROL 48 mg/dl (40-60); LDL CHOLESTEROL 51 mg/dL (9-159); TRIGLYCERIDES 36 mg/dl (<150); VLDL CHOLESTEROL 7 mg/dL (6-40)
== END | disposition home or self-care (01) ==
LOC: CARD 10-09 09:30 → US 10-09 10:30 → CARD 07:47
PROVIDERS: Internal Medicine Cardiovascular Disease
DX: I51.89 Other ill-defined heart diseases (principal); H53.9 Unspecified visual disturbance; E78.49 Other hyperlipidemia; Z95.0 Presence of cardiac pacemaker

== ENCOUNTER 2020-03-08 08:52 | Emergency (ER) | payer MEDICARE, OTHER ==
[~2020-03-08] VITALS: Ht 195.5 cm; Wt 106.6 kg
[2020-03-08] VITALS (10 sets, daily range): BP systolic 127–134; BP diastolic 48–64
[2020-03-08 09:35] LABS: HEMATOCRIT 22.8 % (42.0-52.0); MEAN CELL VOLUME 98.3 fl (80.0-94.0); MEAN CORPUSCULAR HGB CONC 28.5 g/dl (33.0-37.0); MEAN PLATELET VOLUME 9.6 fl (9.6-12.3); PLATELET COUNT AUTOMATED 181 10*3/uL (130-400); RED BLOOD COUNT 2.32 10*6/uL (4.50-5.90); RED CELL DISTRI WIDTH 14.4 % (0-14.5); WHITE BLOOD COUNT 5.5 10*3/uL (4.8-10.8)
[2020-03-08 09:45] LABS: ACT PARTIAL THROMBO TIME 27.1 SECONDS (20.0-32.1)
[2020-03-08 09:51] LABS: BASOPHILS 1 % (0-1); TOTAL CELLS COUNTED 100 #CELLS
[2020-03-08 09:52] LABS: OVALOCYTES FEW; PLATELET SUFFICIENCY NORMAL (NORMAL)
[2020-03-08 10:10] LABS: CREATININE 1.92 mg/dL (0.70-1.30); POTASSIUM 4.7 mmol/L (3.5-5.1)
== END 2020-03-08 17:41 | disposition home or self-care (01) ==
LOC: ED 08:52
PROVIDERS: Emergency Medicine
DX: T83.098A Other mechanical complication of other urinary catheter, initial encounter (principal); R31.9 Hematuria, unspecified; D50.0 Iron deficiency anemia secondary to blood loss (chronic); Z79.899 Other long term (current) drug therapy; Z88.2 Allergy status to sulfonamides; Z88.8 Allergy status to other drugs, medicaments and biological substances; Y92.89 Other specified places as the place of occurrence of the external cause

== ENCOUNTER 2020-04-15 17:33 | Observation (INO) | payer MEDICARE, OTHER ==
[~2020-04-15] VITALS: Ht 196 cm; Wt 108.0 kg
[2020-04-15] VITALS (8 sets, daily range): BP systolic 96–118; BP diastolic 41–53
[2020-04-16] VITALS (26 sets, daily range): BP systolic 98–121; BP diastolic 41–78
[2020-04-16 07:09] LABS: HEMATOCRIT 22.1 % (42.0-52.0); MEAN CORPUSCULAR HGB 27.7 pg (27.0-31.0); MEAN CORPUSCULAR HGB CONC 29.4 g/dl (33.0-37.0); PLATELET COUNT AUTOMATED 142 10*3/uL (130-400); RED BLOOD COUNT 2.35 10*6/uL (4.50-5.90); RED CELL DISTRI WIDTH 14.6 % (0-14.5); WHITE BLOOD COUNT 6.2 10*3/uL (4.8-10.8)
[2020-04-16 07:21] LABS: INTERNATIONAL NORM RATIO 1.2 (2.0-3.5)
[2020-04-16 07:37] LABS: OVALOCYTES MODERATE; PLATELET SUFFICIENCY NORMAL (NORMAL); TOTAL CELLS COUNTED 100 #CELLS
[2020-04-16 07:38] LABS: ALBUMIN 2.7 gm/dl (3.1-4.5); CREATININE 2.49 mg/dL (0.70-1.30); TOTAL PROTEIN 5.8 gm/dL (6.4-8.2)
[2020-04-16 07:42] LABS: TROPONIN I 0.079 ng/ml (<0.045)
[2020-04-16 07:45] LABS: THYROID STIM HORMONE (HS) 4.71 uIU/ml (0.358-4.75)
[2020-04-16 13:58] LABS: BASO % 0.1 % (0.0-1.0); EOS # 0.1 10*3/uL (0.0-0.4); EOS % 2.1 % (1.0-4.0); HEMATOCRIT 25.3 % (42.0-52.0); LYMPH # 0.5 10*3/uL (1.3-4.4); LYMPH % 7.6 % (27.0-41.0); MEAN CORPUSCULAR HGB 27.2 pg (27.0-31.0); MEAN CORPUSCULAR HGB CONC 29.2 g/dl (33.0-37.0); MONO # 1.2 10*3/uL (0.1-1.0); MONO % 18.3 % (3.0-9.0); NEUT # 4.8 10*3/uL (2.3-7.9); NEUT % 71.3 % (47.0-73.0); PLATELET COUNT AUTOMATED 168 10*3/uL (130-400); RED BLOOD COUNT 2.72 10*6/uL (4.50-5.90); RED CELL DISTRI WIDTH 14.6 % (0-14.5); WHITE BLOOD COUNT 6.7 10*3/uL (4.8-10.8)
[2020-04-17] VITALS (16 sets, daily range): BP systolic 110–135; BP diastolic 48–74
[2020-04-17 06:28] LABS: HEMATOCRIT 23.4 % (42.0-52.0); MEAN CELL VOLUME 93.2 fl (80.0-94.0); MEAN CORPUSCULAR HGB 27.1 pg (27.0-31.0); MEAN CORPUSCULAR HGB CONC 29.1 g/dl (33.0-37.0); PLATELET COUNT AUTOMATED 157 10*3/uL (130-400); RED BLOOD COUNT 2.51 10*6/uL (4.50-5.90); WHITE BLOOD COUNT 4.9 10*3/uL (4.8-10.8)
[2020-04-17 06:59] LABS: TOTAL CELLS COUNTED 100 #CELLS
[2020-04-17 07:00] LABS: OVALOCYTES FEW; PLATELET SUFFICIENCY NORMAL (NORMAL); POLYCHROMASIA SLIGHT
[2020-04-18] VITALS: BP 139/79
[2020-04-18 06:34] LABS: BASO % 0.3 % (0.0-1.0); EOS # 0.3 10*3/uL (0.0-0.4); EOS % 4.9 % (1.0-4.0); HEMATOCRIT 26.9 % (42.0-52.0); LYMPH # 0.6 10*3/uL (1.3-4.4); MEAN CELL VOLUME 94.1 fl (80.0-94.0); MEAN CORPUSCULAR HGB 26.9 pg (27.0-31.0); MEAN CORPUSCULAR HGB CONC 28.6 g/dl (33.0-37.0); MEAN PLATELET VOLUME 9.8 fl (9.6-12.3); MONO # 1.1 10*3/uL (0.1-1.0); MONO % 17.8 % (3.0-9.0); NEUT % 66.7 % (47.0-73.0); PLATELET COUNT AUTOMATED 194 10*3/uL (130-400); RED BLOOD COUNT 2.86 10*6/uL (4.50-5.90); RED CELL DISTRI WIDTH 15.3 % (0-14.5); WHITE BLOOD COUNT 6.1 10*3/uL (4.8-10.8)
[2020-04-18 06:52] LABS: CREATININE 2.13 mg/dL (0.70-1.30); POTASSIUM 4.2 mmol/L (3.5-5.1)
[2020-04-18 08:00] VITALS: BP 112/61
== END 2020-04-18 11:00 | disposition other institution (70) ==
LOC: ED 17:33 → EDHOLD 18:42 → 5E 18:42 → EDHOLD 20:39 → 5E 04-17 21:20
PROVIDERS: Internal Medicine Gastroenterology; Student in an Organized Health Care Education/Training Program; ADMIT Internal Medicine; ATTEND Internal Medicine
DX: R53.1 Weakness (principal); N17.0 Acute kidney failure with tubular necrosis; K57.91 Diverticulosis of intestine, part unspecified, without perforation or abscess with bleeding; K92.1 Melena; E87.1 Hypo-osmolality and hyponatremia; I48.91 Unspecified atrial fibrillation; J44.9 Chronic obstructive pulmonary disease, unspecified; K57.90 Diverticulosis of intestine, part unspecified, without perforation or abscess without bleeding; K29.70 Gastritis, unspecified, without bleeding; I12.9 Hypertensive chronic kidney disease with stage 1 through stage 4 chronic kidney disease, or unspecified chronic kidney disease; M25.462 Effusion, left knee; M47.9 Spondylosis, unspecified; D53.9 Nutritional anemia, unspecified; R00.1 Bradycardia, unspecified; N18.32 Chronic kidney disease, stage 3b; R73.9 Hyperglycemia, unspecified; R31.0 Gross hematuria; I48.0 Paroxysmal atrial fibrillation; D68.59 Other primary thrombophilia; D50.0 Iron deficiency anemia secondary to blood loss (chronic); Z20.828 Contact with and (suspected) exposure to other viral communicable diseases; Z87.891 Personal history of nicotine dependence; Z79.01 Long term (current) use of anticoagulants; Z90.49 Acquired absence of other specified parts of digestive tract; Z95.0 Presence of cardiac pacemaker; Z98.890 Other specified postprocedural states

== ENCOUNTER → 2020-07-18 | Outpatient (CLI) | payer MEDICARE, OTHER ==
[2020-07-16 09:49] LABS: HEMATOCRIT 24.4 % (42.0-52.0); MEAN CELL VOLUME 99.2 fl (80.0-94.0); MEAN CORPUSCULAR HGB 27.6 pg (27.0-31.0); MEAN CORPUSCULAR HGB CONC 27.9 g/dl (33.0-37.0); MEAN PLATELET VOLUME 9.3 fl (9.6-12.3); PLATELET COUNT AUTOMATED 146 10*3/uL (130-400); RED BLOOD COUNT 2.46 10*6/uL (4.50-5.90); RED CELL DISTRI WIDTH 14.6 % (0-14.5); WHITE BLOOD COUNT 4.4 10*3/uL (4.8-10.8)
[2020-07-16 10:05] LABS: OVALOCYTES FEW; PLATELET SUFFICIENCY NORMAL (NORMAL); SCHISTOCYTES FEW; TOTAL CELLS COUNTED 100 #CELLS
[2020-07-18 10:30] VITALS: BP 117/33
[2020-07-18 11:22] VITALS: BP 117/67
[2020-07-18 12:22] VITALS: BP 121/41
[2020-07-18 13:30] VITALS: BP 129/42
== END | disposition home or self-care (01) ==
LOC: TRNFUSION 07-16 00:39
PROVIDERS: ATTEND Internal Medicine
DX: D64.9 Anemia, unspecified (principal); I10 Essential (primary) hypertension; K21.9 Gastro-esophageal reflux disease without esophagitis; E11.9 Type 2 diabetes mellitus without complications; I25.10 Atherosclerotic heart disease of native coronary artery without angina pectoris; M19.90 Unspecified osteoarthritis, unspecified site; Z87.891 Personal history of nicotine dependence

== ENCOUNTER → 2020-08-02 | Outpatient (CLI) | payer MEDICARE, OTHER ==
[2020-08-02 09:21] VITALS: BP 113/46
[2020-08-02 09:51] VITALS: BP 112/40
[2020-08-02 10:20] VITALS: BP 118/51
[2020-08-02 10:36] VITALS: BP 124/64
[2020-08-02 11:36] VITALS: BP 122/54
[2020-08-02 12:10] VITALS: BP 124/58
== END | disposition home or self-care (01) ==
LOC: LAB 08-01 11:28 → TRNFUSION 08:30 → LAB 08:30
PROVIDERS: ATTEND Internal Medicine
DX: D64.9 Anemia, unspecified (principal); I10 Essential (primary) hypertension; K21.9 Gastro-esophageal reflux disease without esophagitis; E11.9 Type 2 diabetes mellitus without complications; I25.10 Atherosclerotic heart disease of native coronary artery without angina pectoris; M19.90 Unspecified osteoarthritis, unspecified site

== ENCOUNTER → 2020-09-10 | Outpatient (CLI) | payer MEDICARE, OTHER ==
[~2020-09-10] MED LIST changes: +AUGMENTIN 875875 MG PO; +ELIQUIS2.5 M1 PO; -ELIQUIS5 M1 PO; +HYDROCODONE-AC1 EAC1 PO; +PROPRANOLOL HCL40 M1 PO
== END ==
LOC: WOUNDCARE 06:30
PROVIDERS: ATTEND Nurse Practitioner
DX: I87.313 Chronic venous hypertension (idiopathic) with ulcer of bilateral lower extremity (principal); E11.622 Type 2 diabetes mellitus with other skin ulcer; L97.812 Non-pressure chronic ulcer of other part of right lower leg with fat layer exposed; L97.822 Non-pressure chronic ulcer of other part of left lower leg with fat layer exposed; L97.322 Non-pressure chronic ulcer of left ankle with fat layer exposed; L97.212 Non-pressure chronic ulcer of right calf with fat layer exposed; L97.222 Non-pressure chronic ulcer of left calf with fat layer exposed; I48.91 Unspecified atrial fibrillation; R60.9 Edema, unspecified; Z95.0 Presence of cardiac pacemaker; Z87.891 Personal history of nicotine dependence; Z79.899 Other long term (current) drug therapy

== ENCOUNTER 2020-09-13 13:07 | Emergency (ER) | payer MEDICARE, OTHER ==
[~2020-09-13] VITALS: Ht 195.5 cm; Wt 104.3 kg
[~2020-09-13 13:07] MED LIST changes: -HYDROCODONE-AC1 EAC1 PO
[2020-09-13 13:12] VITALS: BP 120/54
[2020-09-13] MEDS ORDERED: HYDROCODONE-AC1 EAC1 PO (16:00)
== END 2020-09-13 16:23 | disposition home or self-care (01) ==
LOC: ED 13:07
DX: S12.100A Unspecified displaced fracture of second cervical vertebra, initial encounter for closed fracture (principal); Z88.2 Allergy status to sulfonamides; Z79.2 Long term (current) use of antibiotics; Z79.899 Other long term (current) drug therapy; Z90.49 Acquired absence of other specified parts of digestive tract; Z96.651 Presence of right artificial knee joint; Z95.0 Presence of cardiac pacemaker; Z87.891 Personal history of nicotine dependence; W18.39XA Other fall on same level, initial encounter; Y93.89 Activity, other specified; Y92.89 Other specified places as the place of occurrence of the external cause; Y99.8 Other external cause status

== ENCOUNTER → 2020-09-27 | Outpatient (CLI) | payer MEDICARE, OTHER ==
[~2020-09-27] MED LIST changes: +HYDROCODONE-AC1 EAC1 PO
== END ==
LOC: WOUNDCARE 01:50
PROVIDERS: ATTEND Nurse Practitioner
DX: I87.313 Chronic venous hypertension (idiopathic) with ulcer of bilateral lower extremity (principal); E11.622 Type 2 diabetes mellitus with other skin ulcer; L97.812 Non-pressure chronic ulcer of other part of right lower leg with fat layer exposed; L97.822 Non-pressure chronic ulcer of other part of left lower leg with fat layer exposed; L97.322 Non-pressure chronic ulcer of left ankle with fat layer exposed; L97.212 Non-pressure chronic ulcer of right calf with fat layer exposed; L97.222 Non-pressure chronic ulcer of left calf with fat layer exposed; I48.91 Unspecified atrial fibrillation; R60.9 Edema, unspecified; Z95.0 Presence of cardiac pacemaker; Z87.891 Personal history of nicotine dependence; Z79.899 Other long term (current) drug therapy

== ENCOUNTER → 2020-10-02 | Outpatient (CLI) | payer MEDICARE, OTHER | LOC: WOUNDCARE 08:45 | PROVIDERS: ATTEND Nurse Practitioner | DX: I87.313 Chronic venous hypertension (idiopathic) with ulcer of bilateral lower extremity (principal); E11.622 Type 2 diabetes mellitus with other skin ulcer; L97.822 Non-pressure chronic ulcer of other part of left lower leg with fat layer exposed; L97.322 Non-pressure chronic ulcer of left ankle with fat layer exposed; L97.222 Non-pressure chronic ulcer of left calf with fat layer exposed; L97.812 Non-pressure chronic ulcer of other part of right lower leg with fat layer exposed; L97.212 Non-pressure chronic ulcer of right calf with fat layer exposed; I48.91 Unspecified atrial fibrillation; R60.9 Edema, unspecified; Z95.0 Presence of cardiac pacemaker; Z87.891 Personal history of nicotine dependence ==

== ENCOUNTER → 2020-10-09 | Outpatient (CLI) | payer MEDICARE, OTHER | LOC: WOUNDCARE 02:14 | PROVIDERS: ATTEND Nurse Practitioner | DX: I87.313 Chronic venous hypertension (idiopathic) with ulcer of bilateral lower extremity (principal); E11.622 Type 2 diabetes mellitus with other skin ulcer; L97.822 Non-pressure chronic ulcer of other part of left lower leg with fat layer exposed; L97.322 Non-pressure chronic ulcer of left ankle with fat layer exposed; L97.222 Non-pressure chronic ulcer of left calf with fat layer exposed; L97.812 Non-pressure chronic ulcer of other part of right lower leg with fat layer exposed; L97.212 Non-pressure chronic ulcer of right calf with fat layer exposed; I48.91 Unspecified atrial fibrillation; R60.9 Edema, unspecified; Z95.0 Presence of cardiac pacemaker; Z87.891 Personal history of nicotine dependence ==

== ENCOUNTER → 2020-10-16 | Outpatient (CLI) | payer MEDICARE, OTHER ==
[~2020-10-16] MED LIST changes: +ASPIRIN CHEWABL81 MG PO; +HYDROXYZINE HCL25 MG PO
== END ==
LOC: WOUNDCARE 00:56
PROVIDERS: ATTEND Nurse Practitioner
DX: I87.313 Chronic venous hypertension (idiopathic) with ulcer of bilateral lower extremity (principal); L97.812 Non-pressure chronic ulcer of other part of right lower leg with fat layer exposed; L97.822 Non-pressure chronic ulcer of other part of left lower leg with fat layer exposed; E11.622 Type 2 diabetes mellitus with other skin ulcer; L97.322 Non-pressure chronic ulcer of left ankle with fat layer exposed; L97.222 Non-pressure chronic ulcer of left calf with fat layer exposed; L97.212 Non-pressure chronic ulcer of right calf with fat layer exposed; I10 Essential (primary) hypertension; I48.91 Unspecified atrial fibrillation; Z95.0 Presence of cardiac pacemaker; Z98.890 Other specified postprocedural states; Z87.891 Personal history of nicotine dependence

== ENCOUNTER 2020-10-24 13:28 | Inpatient (IN) | payer MEDICARE, OTHER ==
[2020-10-24] VITALS (10 sets, daily range): BP systolic 100–117; BP diastolic 42–55
[~2020-10-24] VITALS: Ht 195.5 cm; Wt 96.2 kg
[~2020-10-24 13:28] MED LIST changes: -ASPIRIN CHEWABL81 MG PO; -HYDROXYZINE HCL25 MG PO
[2020-10-24 14:09] LABS: MEAN CELL VOLUME 95.7 fl (80.0-94.0); MEAN CORPUSCULAR HGB 26.2 pg (27.0-31.0); MEAN CORPUSCULAR HGB CONC 27.4 g/dl (33.0-37.0); MEAN PLATELET VOLUME 9.6 fl (9.6-12.3); PLATELET COUNT AUTOMATED 178 10*3/uL (130-400); RED BLOOD COUNT 1.64 10*6/uL (4.50-5.90); RED CELL DISTRI WIDTH 15.6 % (0-14.5)
[2020-10-24 14:23] LABS: HEMATOCRIT 15.7 % (42.0-52.0)
[2020-10-24 14:24] LABS: ALBUMIN 2.8 gm/dl (3.1-4.5); ALKALINE PHOSPHATASE 79 U/L (45-117); BUN 42 mg/dl (7-24); CHLORIDE 113 mmol/L (98-107); CREATININE 2.14 mg/dL (0.70-1.30); LIPASE 50 U/L (73-393); SGOT/AST 11 IU/L (3-35); SGPT/ALT 12 U/L (12-78); SODIUM 139 mmol/L (136-145); TOTAL PROTEIN 6.1 gm/dL (6.4-8.2)
[2020-10-24 14:29] LABS: OVALOCYTES MODERATE; PLATELET SUFFICIENCY NORMAL (NORMAL); TOTAL CELLS COUNTED 100 #CELLS
[2020-10-24 14:38] LABS: TROPONIN I < 0.015 ng/ml (<0.045)
[2020-10-25] VITALS (32 sets, daily range): BP systolic 100–129; BP diastolic 48–60
[2020-10-25 14:20] LABS: HEMATOCRIT 20.3 % (42.0-52.0)
[2020-10-25 15:24] LABS: ACT PARTIAL THROMBO TIME 25.6 SECONDS (20.0-32.1); INTERNATIONAL NORM RATIO 1.1 (2.0-3.5)
[2020-10-26] VITALS (20 sets, daily range): BP systolic 96–118; BP diastolic 38–63
[2020-10-26 06:06] LABS: HEMATOCRIT 20.5 % (42.0-52.0)
[2020-10-26 17:10] LABS: HEMATOCRIT 25.5 % (42.0-52.0)
[2020-10-27] VITALS: BP 107/47
[2020-10-27 04:00] VITALS: BP 100/53
[2020-10-27 05:15] LABS: CREATININE 1.59 mg/dL (0.70-1.30); POTASSIUM 3.9 mmol/L (3.5-5.1)
[2020-10-27 06:12] LABS: BASO % 0.2 % (0.0-1.0); EOS # 0.4 10*3/uL (0.0-0.4); EOS % 7.2 % (1.0-4.0); HEMATOCRIT 25.5 % (42.0-52.0); LYMPH # 0.5 10*3/uL (1.3-4.4); LYMPH % 9.7 % (27.0-41.0); MEAN CELL VOLUME 95.5 fl (80.0-94.0); MEAN CORPUSCULAR HGB 27.3 pg (27.0-31.0); MEAN CORPUSCULAR HGB CONC 28.6 g/dl (33.0-37.0); MEAN PLATELET VOLUME 9.8 fl (9.6-12.3); MONO # 0.7 10*3/uL (0.1-1.0); NEUT # 3.6 10*3/uL (2.3-7.9); NEUT % 68.5 % (47.0-73.0); PLATELET COUNT AUTOMATED 151 10*3/uL (130-400); RED BLOOD COUNT 2.67 10*6/uL (4.50-5.90); RED CELL DISTRI WIDTH 15.8 % (0-14.5); WHITE BLOOD COUNT 5.3 10*3/uL (4.8-10.8)
[2020-10-27] MEDS ORDERED: HYDROXYZINE HCL25 MG PO (07:30)
[2020-10-27] MEDS ORDERED: ASPIRIN CHEWABL81 MG PO (07:30)
[2020-10-27 08:00] VITALS: BP 113/50
== END 2020-10-27 10:15 | disposition home health service (06) | DRG 378 ==
LOC: ED 13:28 → EDHOLD 16:06 → ICCU 16:06
PROVIDERS: Emergency Medicine; Internal Medicine Gastroenterology; ADMIT Internal Medicine; ATTEND Internal Medicine
PROC: 30233N1 Transfusion of Nonautologous Red Blood Cells into Peripheral Vein, Percutaneous Approach (ICD-10-PCS; principal; 2020-10-25)
PROC: 0DB68ZX Excision of Stomach, Via Natural or Artificial Opening Endoscopic, Diagnostic (ICD-10-PCS; 2020-10-25)
DX: K29.71 Gastritis, unspecified, with bleeding (principal); I48.21 Permanent atrial fibrillation; E44.1 Mild protein-calorie malnutrition; J44.9 Chronic obstructive pulmonary disease, unspecified; R62.7 Adult failure to thrive; Z95.0 Presence of cardiac pacemaker; R33.9 Retention of urine, unspecified; Z79.01 Long term (current) use of anticoagulants; Z88.2 Allergy status to sulfonamides; Z88.8 Allergy status to other drugs, medicaments and biological substances; Z79.1 Long term (current) use of non-steroidal anti-inflammatories (NSAID); Z79.899 Other long term (current) drug therapy; Z87.891 Personal history of nicotine dependence; Z68.25 Body mass index [BMI] 25.0-25.9, adult; N18.9 Chronic kidney disease, unspecified; D50.0 Iron deficiency anemia secondary to blood loss (chronic)

== ENCOUNTER → 2020-10-31 | Outpatient (CLI) | payer MEDICARE, OTHER ==
[~2020-10-31] MED LIST changes: +ASPIRIN CHEWABL81 MG PO; +HYDROXYZINE HCL25 MG PO
== END ==
LOC: WOUNDCARE 01:41
PROVIDERS: ATTEND Nurse Practitioner Primary Care
DX: S91.105A Unspecified open wound of left lesser toe(s) without damage to nail, initial encounter (principal); I87.313 Chronic venous hypertension (idiopathic) with ulcer of bilateral lower extremity; L97.222 Non-pressure chronic ulcer of left calf with fat layer exposed; L97.212 Non-pressure chronic ulcer of right calf with fat layer exposed; E11.622 Type 2 diabetes mellitus with other skin ulcer; I10 Essential (primary) hypertension; I48.91 Unspecified atrial fibrillation; Z95.0 Presence of cardiac pacemaker; Z87.891 Personal history of nicotine dependence; W22.8XXA Striking against or struck by other objects, initial encounter; Y93.89 Activity, other specified; Y92.89 Other specified places as the place of occurrence of the external cause; Y99.8 Other external cause status

== ENCOUNTER → 2020-11-08 | Outpatient (CLI) | payer MEDICARE, OTHER | LOC: WOUNDCARE 11-07 08:29 | PROVIDERS: ATTEND Nurse Practitioner | DX: S91.105D Unspecified open wound of left lesser toe(s) without damage to nail, subsequent encounter (principal); I87.313 Chronic venous hypertension (idiopathic) with ulcer of bilateral lower extremity; L97.222 Non-pressure chronic ulcer of left calf with fat layer exposed; L97.212 Non-pressure chronic ulcer of right calf with fat layer exposed; E11.622 Type 2 diabetes mellitus with other skin ulcer; I10 Essential (primary) hypertension; I48.91 Unspecified atrial fibrillation; Z95.0 Presence of cardiac pacemaker; Z87.891 Personal history of nicotine dependence; W22.8XXD Striking against or struck by other objects, subsequent encounter ==

== ENCOUNTER 2020-11-13 18:46 | Inpatient (IN) | payer MEDICARE, OTHER ==
[~2020-11-13] VITALS: Ht 195.5 cm; Wt 105.2 kg
[2020-11-13 18:50] VITALS: BP 123/50
[2020-11-13 19:30] LABS: BASO % 0.5 % (0.0-1.0); EOS # 0.4 10*3/uL (0.0-0.4); EOS % 9.5 % (1.0-4.0); HEMATOCRIT 24.9 % (42.0-52.0); LYMPH # 0.6 10*3/uL (1.3-4.4); LYMPH % 14.3 % (27.0-41.0); MEAN CELL VOLUME 97.6 fl (80.0-94.0); MEAN CORPUSCULAR HGB 28.2 pg (27.0-31.0); MEAN CORPUSCULAR HGB CONC 28.9 g/dl (33.0-37.0); MEAN PLATELET VOLUME 10.1 fl (9.6-12.3); MONO # 0.6 10*3/uL (0.1-1.0); MONO % 12.9 % (3.0-9.0); NEUT # 2.8 10*3/uL (2.3-7.9); NEUT % 62.3 % (47.0-73.0); PLATELET COUNT AUTOMATED 184 10*3/uL (130-400); RED BLOOD COUNT 2.55 10*6/uL (4.50-5.90); RED CELL DISTRI WIDTH 17.2 % (0-14.5); WHITE BLOOD COUNT 4.4 10*3/uL (4.8-10.8)
[2020-11-13 19:49] LABS: CREATININE 1.74 mg/dL (0.70-1.30); POTASSIUM 4.5 mmol/L (3.5-5.1)
[2020-11-13 22:53] VITALS: BP 132/100
[2020-11-13 23:35] LABS: RETICULOCYTE % 2.14 % (0.50-2.50)
[2020-11-13 23:46] LABS: IRON 21 ug/dL (65-175); TOTAL IRON BINDING CAPACITY 285 ug/dl (250-450)
[2020-11-13 23:51] VITALS: BP 113/62
[2020-11-14] VITALS (10 sets, daily range): BP systolic 107–140; BP diastolic 52–64
[2020-11-14 00:17] LABS: FERRITIN 28.6 ng/mL (22.0-322.0)
[2020-11-14 13:10] LABS: HEMATOCRIT 26.5 % (42.0-52.0)
== END 2020-11-14 16:15 | disposition home or self-care (01) | DRG 812 ==
LOC: ED 18:46 → EDHOLD 20:45
PROVIDERS: Internal Medicine; ADMIT Internal Medicine; ATTEND Internal Medicine
PROC: 30233N1 Transfusion of Nonautologous Red Blood Cells into Peripheral Vein, Percutaneous Approach (ICD-10-PCS; principal; 2020-11-14)
DX: D50.9 Iron deficiency anemia, unspecified (principal); N17.9 Acute kidney failure, unspecified; F51.04 Psychophysiologic insomnia; Z96.651 Presence of right artificial knee joint; M1A.9XX0 Chronic gout, unspecified, without tophus (tophi); K21.00 Gastro-esophageal reflux disease with esophagitis, without bleeding; N40.1 Benign prostatic hyperplasia with lower urinary tract symptoms; R33.8 Other retention of urine; N18.9 Chronic kidney disease, unspecified; I12.9 Hypertensive chronic kidney disease with stage 1 through stage 4 chronic kidney disease, or unspecified chronic kidney disease; Z88.2 Allergy status to sulfonamides; Z88.8 Allergy status to other drugs, medicaments and biological substances; Z79.1 Long term (current) use of non-steroidal anti-inflammatories (NSAID); Z79.899 Other long term (current) drug therapy; Z90.49 Acquired absence of other specified parts of digestive tract; Z95.0 Presence of cardiac pacemaker; Z87.891 Personal history of nicotine dependence; Z82.49 Family history of ischemic heart disease and other diseases of the circulatory system

== ENCOUNTER → 2020-11-15 | Outpatient (CLI) | payer MEDICARE, OTHER | LOC: WOUNDCARE 00:45 | PROVIDERS: ATTEND Nurse Practitioner | DX: S91.105D Unspecified open wound of left lesser toe(s) without damage to nail, subsequent encounter (principal); I87.313 Chronic venous hypertension (idiopathic) with ulcer of bilateral lower extremity; L97.222 Non-pressure chronic ulcer of left calf with fat layer exposed; L97.212 Non-pressure chronic ulcer of right calf with fat layer exposed; E11.622 Type 2 diabetes mellitus with other skin ulcer; L97.822 Non-pressure chronic ulcer of other part of left lower leg with fat layer exposed; I10 Essential (primary) hypertension; I48.91 Unspecified atrial fibrillation; Z95.0 Presence of cardiac pacemaker; Z87.891 Personal history of nicotine dependence; W22.8XXD Striking against or struck by other objects, subsequent encounter ==

== ENCOUNTER → 2020-11-26 | Outpatient (CLI) | payer MEDICARE, OTHER | LOC: WOUNDCARE 01:16 | PROVIDERS: ATTEND Nurse Practitioner | DX: I87.313 Chronic venous hypertension (idiopathic) with ulcer of bilateral lower extremity (principal); L97.222 Non-pressure chronic ulcer of left calf with fat layer exposed; L97.212 Non-pressure chronic ulcer of right calf with fat layer exposed; E11.622 Type 2 diabetes mellitus with other skin ulcer; L97.822 Non-pressure chronic ulcer of other part of left lower leg with fat layer exposed; I48.91 Unspecified atrial fibrillation; Z95.0 Presence of cardiac pacemaker; Z87.891 Personal history of nicotine dependence ==

== ENCOUNTER → 2020-12-06 | Outpatient (CLI) | payer MEDICARE, OTHER | LOC: WOUNDCARE 04:03 | PROVIDERS: ATTEND Nurse Practitioner | DX: I87.313 Chronic venous hypertension (idiopathic) with ulcer of bilateral lower extremity (principal); L97.222 Non-pressure chronic ulcer of left calf with fat layer exposed; L97.212 Non-pressure chronic ulcer of right calf with fat layer exposed; E11.622 Type 2 diabetes mellitus with other skin ulcer; L97.822 Non-pressure chronic ulcer of other part of left lower leg with fat layer exposed; I48.21 Permanent atrial fibrillation; Z95.0 Presence of cardiac pacemaker; Z87.891 Personal history of nicotine dependence ==

== ENCOUNTER → 2020-12-13 | Outpatient (CLI) | payer MEDICARE, OTHER | LOC: WOUNDCARE 00:44 | PROVIDERS: ATTEND Nurse Practitioner | DX: I87.313 Chronic venous hypertension (idiopathic) with ulcer of bilateral lower extremity (principal); E11.622 Type 2 diabetes mellitus with other skin ulcer; L97.822 Non-pressure chronic ulcer of other part of left lower leg with fat layer exposed; S51.011A Laceration without foreign body of right elbow, initial encounter; L97.222 Non-pressure chronic ulcer of left calf with fat layer exposed; L97.212 Non-pressure chronic ulcer of right calf with fat layer exposed; I48.21 Permanent atrial fibrillation; Z95.0 Presence of cardiac pacemaker; Z87.891 Personal history of nicotine dependence; W22.8XXA Striking against or struck by other objects, initial encounter; Y93.89 Activity, other specified; Y92.89 Other specified places as the place of occurrence of the external cause; Y99.8 Other external cause status ==

== ENCOUNTER → 2020-12-20 | Outpatient (CLI) | payer MEDICARE, OTHER | LOC: WOUNDCARE 01:03 | PROVIDERS: ATTEND Nurse Practitioner | DX: I87.313 Chronic venous hypertension (idiopathic) with ulcer of bilateral lower extremity (principal); E11.622 Type 2 diabetes mellitus with other skin ulcer; L97.822 Non-pressure chronic ulcer of other part of left lower leg with fat layer exposed; L97.812 Non-pressure chronic ulcer of other part of right lower leg with fat layer exposed; L97.212 Non-pressure chronic ulcer of right calf with fat layer exposed; S51.011D Laceration without foreign body of right elbow, subsequent encounter; L97.222 Non-pressure chronic ulcer of left calf with fat layer exposed; I48.21 Permanent atrial fibrillation; Z95.0 Presence of cardiac pacemaker; Z87.891 Personal history of nicotine dependence; W22.8XXD Striking against or struck by other objects, subsequent encounter ==

== ENCOUNTER → 2020-12-26 | Outpatient (CLI) | payer MEDICARE, OTHER | LOC: WOUNDCARE 00:45 | PROVIDERS: ATTEND Nurse Practitioner | DX: E11.622 Type 2 diabetes mellitus with other skin ulcer (principal); L98.492 Non-pressure chronic ulcer of skin of other sites with fat layer exposed; S51.011D Laceration without foreign body of right elbow, subsequent encounter; I87.313 Chronic venous hypertension (idiopathic) with ulcer of bilateral lower extremity; L97.822 Non-pressure chronic ulcer of other part of left lower leg with fat layer exposed; L97.812 Non-pressure chronic ulcer of other part of right lower leg with fat layer exposed; L97.212 Non-pressure chronic ulcer of right calf with fat layer exposed; L97.222 Non-pressure chronic ulcer of left calf with fat layer exposed; I48.21 Permanent atrial fibrillation; Z95.0 Presence of cardiac pacemaker; Z87.891 Personal history of nicotine dependence; W22.8XXD Striking against or struck by other objects, subsequent encounter ==

== ENCOUNTER → 2021-01-02 | Outpatient (CLI) | payer MEDICARE, OTHER | LOC: WOUNDCARE 00:13 | PROVIDERS: ATTEND Nurse Practitioner | DX: E11.622 Type 2 diabetes mellitus with other skin ulcer (principal); I87.313 Chronic venous hypertension (idiopathic) with ulcer of bilateral lower extremity; L97.822 Non-pressure chronic ulcer of other part of left lower leg with fat layer exposed; L97.212 Non-pressure chronic ulcer of right calf with fat layer exposed; L97.222 Non-pressure chronic ulcer of left calf with fat layer exposed; L98.492 Non-pressure chronic ulcer of skin of other sites with fat layer exposed; S51.011D Laceration without foreign body of right elbow, subsequent encounter; I48.21 Permanent atrial fibrillation; Z95.0 Presence of cardiac pacemaker; Z87.891 Personal history of nicotine dependence; W22.8XXD Striking against or struck by other objects, subsequent encounter ==

== ENCOUNTER → 2021-01-08 | Outpatient (CLI) | payer MEDICARE, OTHER | LOC: WOUNDCARE 01:11 | PROVIDERS: ATTEND Nurse Practitioner | DX: S51.011A Laceration without foreign body of right elbow, initial encounter (principal); S91.204D Unspecified open wound of right lesser toe(s) with damage to nail, subsequent encounter; I48.21 Permanent atrial fibrillation; Z95.0 Presence of cardiac pacemaker; Z87.891 Personal history of nicotine dependence; X58.XXXD Exposure to other specified factors, subsequent encounter; X58.XXXA Exposure to other specified factors, initial encounter; Y93.89 Activity, other specified; Y92.89 Other specified places as the place of occurrence of the external cause; Y99.8 Other external cause status ==

== ENCOUNTER → 2021-01-14 | Outpatient (CLI) | payer MEDICARE, OTHER | LOC: WOUNDCARE 01:06 | PROVIDERS: ATTEND Surgery | DX: S51.011D Laceration without foreign body of right elbow, subsequent encounter (principal); S91.204D Unspecified open wound of right lesser toe(s) with damage to nail, subsequent encounter; I87.303 Chronic venous hypertension (idiopathic) without complications of bilateral lower extremity; I48.91 Unspecified atrial fibrillation; Z95.0 Presence of cardiac pacemaker; Z87.891 Personal history of nicotine dependence; X58.XXXD Exposure to other specified factors, subsequent encounter ==

== ENCOUNTER → 2021-01-22 | Outpatient (CLI) | payer MEDICARE, OTHER ==
[2021-01-22 11:48] LABS: HEMATOCRIT 32.5 % (42.0-52.0)
== END ==
LOC: WOUNDCARE 01:12
PROVIDERS: ATTEND Nurse Practitioner Family
DX: I87.313 Chronic venous hypertension (idiopathic) with ulcer of bilateral lower extremity (principal); L97.222 Non-pressure chronic ulcer of left calf with fat layer exposed; L97.212 Non-pressure chronic ulcer of right calf with fat layer exposed; L97.822 Non-pressure chronic ulcer of other part of left lower leg with fat layer exposed; L97.812 Non-pressure chronic ulcer of other part of right lower leg with fat layer exposed; S91.204D Unspecified open wound of right lesser toe(s) with damage to nail, subsequent encounter; I48.91 Unspecified atrial fibrillation; Z95.0 Presence of cardiac pacemaker; Z87.891 Personal history of nicotine dependence; X58.XXXD Exposure to other specified factors, subsequent encounter

== ENCOUNTER → 2021-01-29 | Outpatient (CLI) | payer MEDICARE, OTHER | LOC: WOUNDCARE 00:52 | PROVIDERS: ATTEND Nurse Practitioner Family | DX: I87.313 Chronic venous hypertension (idiopathic) with ulcer of bilateral lower extremity (principal); L97.822 Non-pressure chronic ulcer of other part of left lower leg with fat layer exposed; L97.812 Non-pressure chronic ulcer of other part of right lower leg with fat layer exposed; L97.222 Non-pressure chronic ulcer of left calf with fat layer exposed; L97.212 Non-pressure chronic ulcer of right calf with fat layer exposed; J06.9 Acute upper respiratory infection, unspecified; S51.011A Laceration without foreign body of right elbow, initial encounter; S91.204D Unspecified open wound of right lesser toe(s) with damage to nail, subsequent encounter; I48.91 Unspecified atrial fibrillation; Z95.0 Presence of cardiac pacemaker; Z87.891 Personal history of nicotine dependence; X58.XXXD Exposure to other specified factors, subsequent encounter; X58.XXXA Exposure to other specified factors, initial encounter; Y93.89 Activity, other specified; Y92.89 Other specified places as the place of occurrence of the external cause; Y99.8 Other external cause status ==

== ENCOUNTER → 2021-02-05 | Outpatient (CLI) | payer MEDICARE, OTHER | LOC: WOUNDCARE 01:53 | PROVIDERS: ATTEND Nurse Practitioner Family | DX: I87.313 Chronic venous hypertension (idiopathic) with ulcer of bilateral lower extremity (principal); L97.822 Non-pressure chronic ulcer of other part of left lower leg with fat layer exposed; L97.812 Non-pressure chronic ulcer of other part of right lower leg with fat layer exposed; L97.222 Non-pressure chronic ulcer of left calf with fat layer exposed; L97.212 Non-pressure chronic ulcer of right calf with fat layer exposed; S51.011D Laceration without foreign body of right elbow, subsequent encounter; S91.204D Unspecified open wound of right lesser toe(s) with damage to nail, subsequent encounter; S61.511A Laceration without foreign body of right wrist, initial encounter; J06.9 Acute upper respiratory infection, unspecified; I77.9 Disorder of arteries and arterioles, unspecified; I48.91 Unspecified atrial fibrillation; Z95.0 Presence of cardiac pacemaker; Z87.891 Personal history of nicotine dependence; X58.XXXD Exposure to other specified factors, subsequent encounter; X58.XXXA Exposure to other specified factors, initial encounter; Y93.89 Activity, other specified; Y92.89 Other specified places as the place of occurrence of the external cause; Y99.8 Other external cause status ==

== ENCOUNTER → 2021-02-17 | Outpatient (CLI) | payer MEDICARE, OTHER | LOC: WOUNDCARE 01:37 | PROVIDERS: ATTEND Nurse Practitioner Family | DX: I87.313 Chronic venous hypertension (idiopathic) with ulcer of bilateral lower extremity (principal); L97.822 Non-pressure chronic ulcer of other part of left lower leg with fat layer exposed; L97.222 Non-pressure chronic ulcer of left calf with fat layer exposed; L97.212 Non-pressure chronic ulcer of right calf with fat layer exposed; S51.011D Laceration without foreign body of right elbow, subsequent encounter; J06.9 Acute upper respiratory infection, unspecified; I77.9 Disorder of arteries and arterioles, unspecified; I48.91 Unspecified atrial fibrillation; Z95.0 Presence of cardiac pacemaker; Z87.891 Personal history of nicotine dependence; X58.XXXD Exposure to other specified factors, subsequent encounter ==

== ENCOUNTER → 2021-02-24 | Outpatient (CLI) | payer MEDICARE, OTHER | LOC: WOUNDCARE 02:32 | PROVIDERS: ATTEND Nurse Practitioner Family | DX: I87.313 Chronic venous hypertension (idiopathic) with ulcer of bilateral lower extremity (principal); L97.822 Non-pressure chronic ulcer of other part of left lower leg with fat layer exposed; L97.222 Non-pressure chronic ulcer of left calf with fat layer exposed; L97.212 Non-pressure chronic ulcer of right calf with fat layer exposed; S91.204D Unspecified open wound of right lesser toe(s) with damage to nail, subsequent encounter; J06.9 Acute upper respiratory infection, unspecified; I77.9 Disorder of arteries and arterioles, unspecified; I48.91 Unspecified atrial fibrillation; Z95.0 Presence of cardiac pacemaker; Z87.891 Personal history of nicotine dependence; X58.XXXD Exposure to other specified factors, subsequent encounter ==

== ENCOUNTER → 2021-03-04 | Outpatient (CLI) | payer MEDICARE, OTHER | LOC: WOUNDCARE 12:56 | PROVIDERS: ATTEND Nurse Practitioner Family | DX: I87.313 Chronic venous hypertension (idiopathic) with ulcer of bilateral lower extremity (principal); L97.822 Non-pressure chronic ulcer of other part of left lower leg with fat layer exposed; L97.222 Non-pressure chronic ulcer of left calf with fat layer exposed; L97.212 Non-pressure chronic ulcer of right calf with fat layer exposed; S91.204D Unspecified open wound of right lesser toe(s) with damage to nail, subsequent encounter; J06.9 Acute upper respiratory infection, unspecified; I77.9 Disorder of arteries and arterioles, unspecified; I48.91 Unspecified atrial fibrillation; Z95.0 Presence of cardiac pacemaker; Z87.891 Personal history of nicotine dependence; X58.XXXD Exposure to other specified factors, subsequent encounter ==

== ENCOUNTER → 2021-03-13 | Outpatient (CLI) | payer MEDICARE, OTHER | LOC: WOUNDCARE 01:45 | PROVIDERS: ATTEND Nurse Practitioner Family | DX: I87.313 Chronic venous hypertension (idiopathic) with ulcer of bilateral lower extremity (principal); L97.822 Non-pressure chronic ulcer of other part of left lower leg with fat layer exposed; L97.222 Non-pressure chronic ulcer of left calf with fat layer exposed; L97.212 Non-pressure chronic ulcer of right calf with fat layer exposed; S91.204D Unspecified open wound of right lesser toe(s) with damage to nail, subsequent encounter; J06.9 Acute upper respiratory infection, unspecified; I77.9 Disorder of arteries and arterioles, unspecified; I48.91 Unspecified atrial fibrillation; Z95.0 Presence of cardiac pacemaker; Z87.891 Personal history of nicotine dependence; X58.XXXD Exposure to other specified factors, subsequent encounter ==

== ENCOUNTER → 2021-03-14 | Outpatient (CLI) | payer MEDICARE, OTHER ==
[2021-03-14 16:21] LABS: CREATININE 1.63 mg/dL (0.70-1.30); POTASSIUM 5.3 mmol/L (3.5-5.1)
== END | disposition home or self-care (01) ==
LOC: LAB 15:30
PROVIDERS: ATTEND Nurse Practitioner Family
DX: L97.222 Non-pressure chronic ulcer of left calf with fat layer exposed (principal)

== ENCOUNTER → 2021-03-20 | Outpatient (CLI) | payer MEDICARE, OTHER | LOC: WOUNDCARE 04:47 | PROVIDERS: ATTEND Nurse Practitioner Family | DX: I87.313 Chronic venous hypertension (idiopathic) with ulcer of bilateral lower extremity (principal); L97.822 Non-pressure chronic ulcer of other part of left lower leg with fat layer exposed; L97.222 Non-pressure chronic ulcer of left calf with fat layer exposed; L97.212 Non-pressure chronic ulcer of right calf with fat layer exposed; S91.204D Unspecified open wound of right lesser toe(s) with damage to nail, subsequent encounter; J06.9 Acute upper respiratory infection, unspecified; I77.9 Disorder of arteries and arterioles, unspecified; I48.91 Unspecified atrial fibrillation; Z95.0 Presence of cardiac pacemaker; Z87.891 Personal history of nicotine dependence; X58.XXXD Exposure to other specified factors, subsequent encounter ==

== ENCOUNTER 2021-03-27 14:46 | Inpatient (IN) | payer MEDICARE, OTHER ==
[~2021-03-27] VITALS: Ht 193 cm; Wt 89.8 kg
[~2021-03-27 14:46] MED LIST changes: -LISINOPRIL2.5 MG PO; -METOPROLOL SUCC25 M2 PO; -NEURONTIN100 MG PO; -ONE-DAILY MULT1 EACH PO
[2021-03-27 14:54] VITALS: BP 103/62
[2021-03-27 15:28] LABS: BASO % 0.4 % (0.0-1.0); EOS # 0.4 10*3/uL (0.0-0.4); EOS % 7.9 % (1.0-4.0); HEMATOCRIT 32.3 % (42.0-52.0); LYMPH # 0.7 10*3/uL (1.3-4.4); LYMPH % 13.6 % (27.0-41.0); MEAN CELL VOLUME 97.3 fl (80.0-94.0); MEAN CORPUSCULAR HGB 28.6 pg (27.0-31.0); MEAN CORPUSCULAR HGB CONC 29.4 g/dl (33.0-37.0); MEAN PLATELET VOLUME 10.2 fl (9.6-12.3); MONO # 0.7 10*3/uL (0.1-1.0); MONO % 13.6 % (3.0-9.0); NEUT # 3.3 10*3/uL (2.3-7.9); NEUT % 64.1 % (47.0-73.0); PLATELET COUNT AUTOMATED 140 10*3/uL (130-400); RED BLOOD COUNT 3.32 10*6/uL (4.50-5.90); RED CELL DISTRI WIDTH 15.4 % (0-14.5); WHITE BLOOD COUNT 5.2 10*3/uL (4.8-10.8)
[2021-03-27 15:39] LABS: ACT PARTIAL THROMBO TIME 29.2 SECONDS (20.0-32.1); INTERNATIONAL NORM RATIO 1.2 (2.0-3.5)
[2021-03-27 15:43] LABS: ALBUMIN 3.1 gm/dl (3.1-4.5); CREATININE 1.78 mg/dL (0.70-1.30); POTASSIUM 4.4 mmol/L (3.5-5.1); TOTAL PROTEIN 6.8 gm/dL (6.4-8.2)
[2021-03-27 16:50] VITALS: BP 115/68
[2021-03-27 18:23] VITALS: BP 113/52
[2021-03-27] MEDS ORDERED: NEURONTIN100 MG PO ×2 (21:05→21:06)
[2021-03-27] MEDS ORDERED: ONE-DAILY MULT1 EACH PO (21:08)
[2021-03-28] VITALS: BP 101/61
[2021-03-28 06:41] LABS: BASO % 0.7 % (0.0-1.0); EOS # 0.4 10*3/uL (0.0-0.4); EOS % 6.8 % (1.0-4.0); HEMATOCRIT 33.3 % (42.0-52.0); LYMPH # 0.7 10*3/uL (1.3-4.4); LYMPH % 11.1 % (27.0-41.0); MEAN CELL VOLUME 96.5 fl (80.0-94.0); MEAN CORPUSCULAR HGB 28.7 pg (27.0-31.0); MEAN CORPUSCULAR HGB CONC 29.7 g/dl (33.0-37.0); MEAN PLATELET VOLUME 10.3 fl (9.6-12.3); MONO # 0.8 10*3/uL (0.1-1.0); MONO % 13.3 % (3.0-9.0); NEUT % 67.9 % (47.0-73.0); PLATELET COUNT AUTOMATED 143 10*3/uL (130-400); RED BLOOD COUNT 3.45 10*6/uL (4.50-5.90); RED CELL DISTRI WIDTH 15.4 % (0-14.5); WHITE BLOOD COUNT 5.9 10*3/uL (4.8-10.8)
[2021-03-28 06:55] LABS: ALBUMIN 3.1 gm/dl (3.1-4.5); CREATININE 1.69 mg/dL (0.70-1.30); POTASSIUM 4.4 mmol/L (3.5-5.1)
[2021-03-28 06:57] LABS: TOTAL PROTEIN 6.9 gm/dL (6.4-8.2)
[2021-03-28 08:00] VITALS: BP 106/58
[2021-03-28 12:00] VITALS: BP 102/50
[2021-03-28 16:00] VITALS: BP 101/71
[2021-03-28 20:00] VITALS: BP 92/55
[2021-03-29] VITALS: BP 117/63
[2021-03-29 06:56] LABS: CREATININE 1.74 mg/dL (0.70-1.30); POTASSIUM 4.4 mmol/L (3.5-5.1)
[2021-03-29 08:00] VITALS: BP 100/32
[2021-03-29 12:00] VITALS: BP 98/51
[2021-03-29 16:00] VITALS: BP 101/56
[2021-03-29 20:00] VITALS: BP 106/55
[2021-03-30] VITALS: BP 98/50
[2021-03-30 07:00] LABS: CREATININE 1.76 mg/dL (0.70-1.30)
[2021-03-30 09:00] VITALS: BP 102/52
[2021-03-30 12:00] VITALS: BP 106/60; BP 159/61
[2021-03-30 16:00] VITALS: BP 112/65
[2021-03-30 20:00] VITALS: BP 104/53
[2021-03-31] VITALS: BP 93/51
[2021-03-31 06:20] LABS: BASO % 0.5 % (0.0-1.0); EOS # 0.3 10*3/uL (0.0-0.4); EOS % 7.7 % (1.0-4.0); HEMATOCRIT 31.9 % (42.0-52.0); LYMPH # 0.6 10*3/uL (1.3-4.4); MEAN CELL VOLUME 97.6 fl (80.0-94.0); MEAN CORPUSCULAR HGB 28.4 pg (27.0-31.0); MEAN CORPUSCULAR HGB CONC 29.2 g/dl (33.0-37.0); MEAN PLATELET VOLUME 10.3 fl (9.6-12.3); MONO # 0.6 10*3/uL (0.1-1.0); MONO % 14.2 % (3.0-9.0); NEUT # 2.7 10*3/uL (2.3-7.9); NEUT % 63.1 % (47.0-73.0); PLATELET COUNT AUTOMATED 115 10*3/uL (130-400); RED BLOOD COUNT 3.27 10*6/uL (4.50-5.90); RED CELL DISTRI WIDTH 14.9 % (0-14.5); WHITE BLOOD COUNT 4.3 10*3/uL (4.8-10.8)
[2021-03-31 06:28] LABS: CREATININE 1.82 mg/dL (0.70-1.30); POTASSIUM 4.3 mmol/L (3.5-5.1)
[2021-03-31 08:00] VITALS: BP 103/47
[2021-03-31 12:00] VITALS: BP 105/61
[2021-03-31] MEDS ORDERED: LASIX40 MG PO (14:26)
[2021-03-31] MEDS ORDERED: METOPROLOL SUCC25 M2 PO (14:26)
[2021-03-31] MEDS ORDERED: LISINOPRIL2.5 MG PO (14:26)
== END 2021-03-31 15:20 | disposition home or self-care (01) | DRG 291 ==
LOC: ED 14:46 → 5E 17:37 → EDHOLD 17:37 → 5E 18:47
PROVIDERS: Emergency Medicine; Internal Medicine; Student in an Organized Health Care Education/Training Program; ADMIT Family Medicine; ATTEND Family Medicine
DX: I13.0 Hypertensive heart and chronic kidney disease with heart failure and stage 1 through stage 4 chronic kidney disease, or unspecified chronic kidney disease (principal); I50.23 Acute on chronic systolic (congestive) heart failure; N17.0 Acute kidney failure with tubular necrosis; D68.9 Coagulation defect, unspecified; L97.518 Non-pressure chronic ulcer of other part of right foot with other specified severity; L97.529 Non-pressure chronic ulcer of other part of left foot with unspecified severity; N18.9 Chronic kidney disease, unspecified; Z95.0 Presence of cardiac pacemaker; I43 Cardiomyopathy in diseases classified elsewhere; D53.9 Nutritional anemia, unspecified; E87.8 Other disorders of electrolyte and fluid balance, not elsewhere classified; E11.42 Type 2 diabetes mellitus with diabetic polyneuropathy; J44.9 Chronic obstructive pulmonary disease, unspecified; I48.91 Unspecified atrial fibrillation; E11.621 Type 2 diabetes mellitus with foot ulcer; E78.00 Pure hypercholesterolemia, unspecified; N40.1 Benign prostatic hyperplasia with lower urinary tract symptoms; E11.65 Type 2 diabetes mellitus with hyperglycemia; E83.41 Hypermagnesemia; G62.9 Polyneuropathy, unspecified; E11.22 Type 2 diabetes mellitus with diabetic chronic kidney disease; Z96.651 Presence of right artificial knee joint; Z87.891 Personal history of nicotine dependence; Z88.2 Allergy status to sulfonamides; Z79.1 Long term (current) use of non-steroidal anti-inflammatories (NSAID); Z79.82 Long term (current) use of aspirin; Z79.899 Other long term (current) drug therapy

== ENCOUNTER → 2021-03-27 | Outpatient (CLI) | payer MEDICARE, OTHER ==
[~2021-03-27] MED LIST changes: +LISINOPRIL2.5 MG PO; +METOPROLOL SUCC25 M2 PO; +NEURONTIN100 MG PO; +ONE-DAILY MULT1 EACH PO
== END ==
LOC: WOUNDCARE 00:44
PROVIDERS: ATTEND Nurse Practitioner Family
DX: I87.313 Chronic venous hypertension (idiopathic) with ulcer of bilateral lower extremity (principal); L97.812 Non-pressure chronic ulcer of other part of right lower leg with fat layer exposed; L97.822 Non-pressure chronic ulcer of other part of left lower leg with fat layer exposed; L97.222 Non-pressure chronic ulcer of left calf with fat layer exposed; L97.212 Non-pressure chronic ulcer of right calf with fat layer exposed; L89.892 Pressure ulcer of other site, stage 2; S91.204D Unspecified open wound of right lesser toe(s) with damage to nail, subsequent encounter; I11.0 Hypertensive heart disease with heart failure; I50.9 Heart failure, unspecified; I77.9 Disorder of arteries and arterioles, unspecified; I48.91 Unspecified atrial fibrillation; Z95.0 Presence of cardiac pacemaker; Z87.891 Personal history of nicotine dependence; X58.XXXD Exposure to other specified factors, subsequent encounter